=== PATIENT | female | born 1990 | race African-American/Black ===

== ENCOUNTER 2020-06-07 14:43 | Outpatient (REF) | payer SELFPAY ==
[2020-06-07 15:44] LABS: MANUAL DIFF FLAG NO
[2020-06-07 15:52] LABS: Basophils Percent Auto 0.4 % (0-2); Eosinophils Absolute Auto 0.1 X10*3/uL (0.0-0.4); Eosinophils Percent Auto 1.3 % (0-4); Hematocrit 36.5 % (37-47); Hemoglobin 11.5 g/dl (12.0-16.0); Imm Gran Abs Auto 0.01 X10*3/uL (0.00-0.03); Imm Gran Pct Auto 0.1 % (0.0-0.4); Lymphocytes Percent Auto 29.4 % (20-40); Mean Corpuscular HGB Conc 31.5 g/dl (31.0-35.0); Mean Corpuscular Volume 88.8 fL (80-98); Mean Platelet Volume 11.4 fL (9.4-12.3); Monocytes Absolute Auto 0.5 X10*3/uL (0.1-1.2); Monocytes Percent Auto 6.9 % (2-11); Neutrophils Absolute Auto 4.2 X10*3/uL (2.0-8.3); Neutrophils Percent Auto 61.9 % (45-73); Platelet Count 269 X10*3/uL (160-400); Red Blood Count 4.11 X10*6/uL (4.20-5.50); White Blood Count 6.8 X10*3/uL (4.8-10.8)
[2020-06-07 16:17] LABS: Alanine Aminotransferase 21 U/L (0-31); Albumin Level 4.4 g/dL (3.5-5.0); Alkaline Phosphatase 93 U/L (39-117); Anion Gap 13 (12-20); Aspartate Amino Transferase 20 U/L (5-31); Bilirubin Total 0.2 mg/dL (0.0-1.0); Blood Urea Nitrogen 19 mg/dL (9-16); Calcium 9.5 mg/dL (8.4-10.2); Carbon Dioxide 27 mmol/L (22-29); Chloride 104 mmol/L (96-108); Cholesterol 145 mg/dL; Estimated Glomerular Filt Rate > 60; Glucose Fasting 83 mg/dL (60-99); HDL Cholesterol 41 mg/dL; LDL Cholesterol Calculated 83 mg/dl; Potassium 4.5 mmol/L (3.3-5.1); Sodium 139 mmol/L (135-145); Total Protein 7.6 g/dL (6.5-8.0); Triglycerides 108 mg/dL
[2020-06-07 16:39] LABS: TSH reflex Free T4 0.55 uIU/mL (0.32-4.0)
== END 2020-06-07 14:44 | disposition home or self-care (01) ==
LOC: HO.LAB 14:43
PROVIDERS: PCP Nurse Practitioner Family; Visit Provider Nurse Practitioner Family
DX: Z00.00 Encounter for general adult medical examination without abnormal findings (principal); Z12.4 Encounter for screening for malignant neoplasm of cervix; H02.829 Cysts of unspecified eye, unspecified eyelid
CPT/HCPCS: 36415; 80053; 80061; 84443; 85025

== ENCOUNTER 2020-08-03 18:30 | Emergency (ER) | payer OTHER, SELFPAY ==
[2020-08-03 18:50] VITALS: BP 145/60; PULSE 77; RESP 16; TEMP 36.5; O2SAT 97; BMI 31.1
--- NOTE | 2020-08-03 19:20 | PC.NURSE ---
PT RESTING ON BED. PT ASKED TO CHANGE INTO JEFF.
[2020-08-03 19:28] VITALS: BP 106/60; PULSE 70; RESP 16; TEMP 36.9; O2SAT 96
--- NOTE | 2020-08-03 19:33 | PC.NURSE ---
PT HAS REDNESS AND SWELLING TO LEFT BREADST. PT HAS A PIERCING NOTED LEFT NIPPLE.
[2020-08-03 20:45] VITALS: BP 118/52; PULSE 69; RESP 18; TEMP 36.9; O2SAT 94
--- NOTE | 2020-08-03 20:47 | PC.NURSE ---
PT EVALED BY TATA JOHNSON.
--- NOTE | 2020-08-03 20:53 | ED_ITS ---
HPI - Skin/Abscess/Foreign Bdy General Chief complaint: Skin/Abscess/Foreign Body Stated complaint: abcess? Time Seen by Provider: 08/03/20 20:53 Source: patient Mode of arrival: ambulatory Limitations: no limitations History of Present Illness HPI narrative: Patient is a 30-year-old female no significant past medical history who has pain and redness on her lower left areola, she does have a piercing in her nipple but states that is 4 years old. She said this started a few days ago and is been getting worse. She denies fever, nipple discharge and breast-feeding. Related Data Previous Rx's Medication Instructions Recorded cholecalciferol (vitamin D3) 25 25 mcg PO DAILY #90 cap 04/05/20 mcg (1,000 unit) capsule hydroxyzine HCl 25 mg tablet 25 mg PO TID PRN 30 Days #90 tab 04/05/20 cyclobenzaprine 10 mg tablet 10 mg PO BEDTIME PRN 30 Days #30 06/07/20 tab meloxicam 15 mg tablet 15 mg PO DAILY #30 tab 07/04/20 cephalexin [Keflex] 750 mg PO Q12H #14 cap 08/03/20 doxycycline hyclate 100 mg PO BID #14 tab 08/03/20 Allergies Allergy/AdvReac Type Severity Reaction Status Date / Time No Known Allergies Allergy Verified 08/03/20 19:27 Review of Systems Review of Systems: Yes all other systems are reviewed and are negative [facility] Past Medical History Medical History Anxiety Cervical cancer screening Cyst of upper eyelid Physical exam, annual Surgical History History of cholecystectomy History of tubal ligation Family History Family History Father Diabetes Cancer Mother No problems noted. Paternal Grandmother Lupus Cancer Brother Automobile accident Social History Social History Alcohol intake: never Smoking Status: Never smoker Advance Directives: No Physical Exam Vital Signs: Vital Signs: Last Vital Signs Temp 98.5 F 08/03/20 20:45 Pulse 69 08/03/20 20:45 Resp 18 04/22/21 20:45 BP 118/52 L 08/03/20 20:45 Pulse Ox 94 08/03/20 20:45 Body Mass Index 31.1 Const: General: cooperative, healthy appearing, comfortable and no acute distress Nutritional Appearance: average body habitus Orientation/consciousness: patient oriented x3 Limitations: no limitations Chest: Breast/axilla inspection: abnormal inspection of the breast ( ) left lower inner erythema, normal nipple, abnormal areola (erythema, tenderness p alpable lump) no thickening and no ulceration and other (well healed piercing); no peau d'orange, no nipple discharge, retraction present, retraction not noted and no scar Resp: Effort & Inspection: normal respiratory effort and able to speak in complete sentences Neuro: General: patient oriented x3 Course Course Course Narrative: 30-year-old female with no significant past medical history presents with few days of pain and redness lower area left breast, physical exam reveals abscess with no fluctuance or pointing. Does not seem to be easily drainable will prescribe antibiotics. Discussed with patient it is likely an abscess but if it does not go away after 1 week of antibiotics that she should follow-up with her PCP for a ultrasound or mammogram the this is less likely as patient states she has no family history and due to her age. Discharge Plan Discharge Clinical Impression: Abscess of skin or subcutaneous tissue Qualifiers: Site of cutaneous abscess: other site Qualified Code(s): L02.818 - Cutaneous abscess of other sites Patient Disposition: Home, Self-Care Instructions: Abscess (ED) Additional Instructions: As discussed, please take both antibiotics in full. If the abscess is not resolve, please be sure to follow-up with your primary care doctor as you may need an ultrasound or mammogram. Prescriptions: New cephalexin [Keflex] 750 mg capsule 750 mg PO Q12H Qty: 14 RF: 0 doxycycline hyclate 100 mg tablet 100 mg PO BID Qty: 14 RF: 0 No Action hydroxyzine HCl 25 mg tablet 25 mg PO TID PRN (Reason: itching) 30 Days Qty: 90 RF: 3 cholecalciferol (vitamin D3) 25 mcg (1,000 unit) capsule 25 mcg PO DAILY Qty: 90 RF: 1 meloxicam 15 mg tablet 15 mg PO DAILY Qty: 30 RF: 0 cyclobenzaprine 10 mg tablet 10 mg PO BEDTIME PRN (Reason: muscle spasm) 30 Days Qty: 30 RF: 0
== END 2020-08-03 21:04 | disposition home or self-care (01) ==
PROVIDERS: Emergency Provider Internal Medicine; PCP Internal Medicine
DX: L02.818 Cutaneous abscess of other sites (principal); Z79.899 Other long term (current) drug therapy
CPT/HCPCS: 99284

== ENCOUNTER 2020-08-06 01:11 | Emergency (ER) | payer OTHER, SELFPAY ==
--- NOTE | ~2020-08-06 | US_ITS ---
EXAMINATION: US DIAGNOSTIC ULTRASOUND BREAST, LEFT CLINICAL INFORMATION: 30-year-old female presented with redness and swelling in the left breast.. COMPARISON: None. TECHNIQUE: Ultrasound of the breast is performed with real-time baez scale imaging and color Doppler. FINDINGS: Scanning over the area of clinical concern at 6 o'clock subareolar region, there is an irregular complex cystic and solid mass measuring 2.7 x 2.6 x 3.1 cm. The margins are indistinct and ill-defined. Increased vascularity is noted at the periphery of this lesion. Overlying skin thickening is noted. The finding most probably represent clinically suspected abscess however it requires close clinical and imaging follow-up to confirm complete resolution and exclude underlying other disease process. As per discussion with Dr. Cantu on 08/06/2020 at 7:46 AM, the patient had recent left nipple piercing. At 2 o'clock in the left breast several hypoechoic lesions are documented with increased vascularity with the largest one measuring 1.4 x 0.9 x 1.1. These likely represent enlarged lymph nodes. The cortical thickness of 1.4 cm lymph node is 0.8 cm. These are probably reactive lymph nodes. An incidental note is made of a simple cyst at 2 o'clock subareolar region measuring 0.6 x 0.5 x 0.8 cm. US/US breast LT limited IMPRESSION: An ill-defined complex cystic and solid structure at 6 o'clock nipple areolar region in the left breast most probably represents a clinically suspected abscess. As per discussion with Dr. Cantu drainage of this structure was performed in the ER and 5 mL of fluid was aspirated. The patient was advised to follow-up with her primary care physician in 2 days. Findings suggestive of possibly reactive lymph nodes at 2 o'clock. ASSESSMENT: BI-RADS 3: Probably Benign RECOMMENDATION: Recommend clinical correlation. Close clinical follow-up is recommended. Recommend short-term interval follow-up left breast diagnostic ultrasound in 1 to 2 months to confirm resolution of the findings and exclude underlying other disease process. Preliminary results were given by Dr. Bajwa to Dr. Simms following initial review of the studies. At the time of the discussion with Dr. Cantu on 08/06/2020 at 7:46 AM, the patient had been discharged from the emergency room with follow-up instructions.
[2020-08-06 01:22] VITALS: BP 98/71; PULSE 81; RESP 16; TEMP 36.2; O2SAT 98; BMI 32.5
--- NOTE | 2020-08-06 01:39 | PC.NURSE ---
MD at bedside for primary eval. pt chantelle in room 4 for privacy during assessment.
[2020-08-06 01:40] VITALS: BP 115/55; PULSE 85; RESP 16; TEMP 37.2; O2SAT 98
--- NOTE | 2020-08-06 02:19 | ED.SKABFB ---
HPI - Skin/Abscess/Foreign Bdy General Chief complaint: Skin/Abscess/Foreign Body Stated complaint: abscess Time Seen by Provider: 08/06/20 01:42 Source: patient Mode of arrival: ambulatory History of Present Illness HPI narrative: 30-year-old female here to states that she began developing pain after she had a nipple ring placed denies any fevers and chills and was seen here in the ER 08/03 at which time she was provided with antibiotics but states that the redness, swelling, and pain continue to worsen. Related Data Previous Rx's Medication Instructions Recorded cholecalciferol (vitamin D3) 25 25 mcg PO DAILY #90 cap 04/05/20 mcg (1,000 unit) capsule hydroxyzine HCl 25 mg tablet 25 mg PO TID PRN 30 Days #90 tab 04/05/20 cyclobenzaprine 10 mg tablet 10 mg PO BEDTIME PRN 30 Days #30 06/07/20 tab meloxicam 15 mg tablet 15 mg PO DAILY #30 tab 07/04/20 cephalexin [Keflex] 750 mg PO Q12H #14 cap 08/03/20 doxycycline hyclate 100 mg PO BID #14 tab 08/03/20 Allergies Allergy/AdvReac Type Severity Reaction Status Date / Time No Known Allergies Allergy Verified 08/03/20 19:27 Review of Systems Review of Systems: Pertinent positives and negatives as stated in HPI 10 point review of systems is otherwise negative. [facility] Past Medical History Source: nursing notes reviewed Medical History Anxiety Cervical cancer screening Cyst of upper eyelid Physical exam, annual Surgical History History of cholecystectomy History of tubal ligation Family History Family History Father Diabetes Cancer Mother No problems noted. Paternal Grandmother Lupus Cancer Brother Automobile accident Social History Social History Alcohol intake: never Smoking Status: Never smoker Use of substances other than those prescribed or required for medical reasons: No Advance Directives: No Physical Exam Vital Signs: Vital Signs: Last Vital Signs Temp 98.6 F 08/06/20 04:45 Pulse 85 08/06/20 01:40 Resp 16 08/06/20 04:45 BP 115/55 L 08/06/20 01:40 Pulse Ox 98 08/06/20 01:40 Body Mass Index 32.5 VITAL SIGNS: Reviewed. GENERAL: Well developed, well nourished, in no acute distress. HEAD: Normocephalic/atraumatic EYES: PERRLA, EOMI OROPHARYNX: no oral lesions noted, posterior pharynx clear NECK: Supple, no adenopathy LUNGS: Normal breath sounds. No adventitious sounds or accessory muscle use. SpO2<98> LEFT BREAST: Significant amount of induration from the 3 o'clock to 9 o'clock position of the inferior breast and noted swelling along the same distribution of the areola with significant tenderness on palpation CARDIOVASCULAR: Regular rate and rhythm without noted murmurs ABDOMEN: Soft, non-tender, non-distended with bowel sounds. NEUROLOGIC: Alert and oriented x 4. Course Course Course Narrative: 30-year-old female with history and clinical presentation consistent with abscess of breast likely secondary to nipple ring placement. Patient underwent aspiration of identified abscess of approximately 3 cm for purulence 5 set cc drainage. Procedures Abscess I/D Site: chest (Left breast) Side (if applicable): left Sedation/analgesia: none Local Anesthetic: other anesthetic (Let) Amount of anesthesia used (mL): 1 Technique: needle aspiration Amount of fluid expressed (mL): 5 Sent for culture/gram staining?: No Irrigation: No Packing used?: none Complications: pain Discharge Plan Discharge Clinical Impression: Abscess of breast Patient Disposition: Home, Self-Care Instructions: Abscess Incision and Drainage (DC), Warm Compress or Soak (ED) Additional Instructions: Continue antibiotics until completion Warm, moist compresses 3 to 4 times a day directly to the area. A hot shower does not substitute for this. Please follow-up with your primary care provider on Friday morning for re-evaluation and assessment. Utilize [id number] Tylenol/ibuprofen as needed for pain control use as directed on the outside packaging. Do not hesitate to return to the emergency department for any acute worsening of your symptoms. Prescriptions: No Action hydroxyzine HCl 25 mg tablet 25 mg PO TID PRN (Reason: itching) 30 Days Qty: 90 RF: 3 cholecalciferol (vitamin D3) 25 mcg (1,000 unit) capsule 25 mcg PO DAILY Qty: 90 RF: 1 meloxicam 15 mg tablet 15 mg PO DAILY Qty: 30 RF: 0 cephalexin [Keflex] 750 mg capsule 750 mg PO Q12H Qty: 14 RF: 0 doxycycline hyclate 100 mg tablet 100 mg PO BID Qty: 14 RF: 0 cyclobenzaprine 10 mg tablet 10 mg PO BEDTIME PRN (Reason: muscle spasm) 30 Days Qty: 30 RF: 0 Referrals: Yolanda Mcfarlane MD [Primary Care Provider] - 2 days (Re-evaluation of left breast abscess after needle aspiration, patient is on antibiotics)
--- NOTE | 2020-08-06 02:27 | PC.NURSE ---
pt off to ultrasound
--- NOTE | 2020-08-06 02:54 | PC.NURSE ---
pt back from ultrasound
[2020-08-06] MEDS: Acetaminophen 325 MG TABLET PO (03:02)
[2020-08-06] MEDS: Acetaminophen 325 MG TABLET 650 MG PO (03:02)
--- NOTE | 2020-08-06 03:40 | PC.NURSE ---
pt currently sleeping comfortably in bed in left lateral position, no signs of distress noted. respirations even and unlabored. call barajas in reach
[2020-08-06 04:44] VITALS: RESP 16; TEMP 37
[2020-08-06] MEDS: Lidocaine/Epineph/Tetracaine 3 ML GEL.PF.APP 1 ML TOPICAL (04:44)
[2020-08-06 04:45] VITALS: RESP 16; TEMP 37
--- NOTE | 2020-08-06 05:16 | PC.NURSE ---
MD at bedside doing ultrasound guided needle aspiration on pts left breast. pt tolerating procedure well.
== END 2020-08-06 06:42 | disposition home or self-care (01) ==
PROVIDERS: Emergency Provider Student in an Organized Health Care Education/Training Program; PCP Internal Medicine
DX: N61.1 Abscess of the breast and nipple (principal); N64.4 Mastodynia; Z79.899 Other long term (current) drug therapy
CPT/HCPCS: 10060; 76642; 99284

== ENCOUNTER 2020-10-13 08:07 | Outpatient (REF) | payer OTHER, SELFPAY ==
--- NOTE | ~2020-10-13 | US_ITS ---
EXAMINATION: US DIAGNOSTIC ULTRASOUND BREAST, LEFT CLINICAL INFORMATION: Followup of complex cystic mass retroareolar region of the left breast felt to represent abscess. Patient has been on antibiotics. COMPARISON: 08/06/2020 TECHNIQUE: Ultrasound of the breast is performed with real-time baez-scale imaging and color Doppler. FINDINGS: There has been resolution of the previously noted complex cystic mass since previous study. No region of abnormal distal sound shadowing or suspicious solid lesions identified. There is again noted be a simple cyst retroareolar 6 o'clock location. Results are discussed with the patient at time of visit. US/US breast LT limited IMPRESSION: Resolution of previously noted complex cystic mass representing abscess left breast. ASSESSMENT: BI-RADS 1: Negative. RECOMMENDATION: Screening mammography starting at 40 years old. This patient's information was entered into a reminder system with a target due date for their next mammogram.
== END 2020-10-13 08:08 | disposition home or self-care (01) ==
LOC: HO.MAMMO 08:07
PROVIDERS: Visit Provider Internal Medicine
DX: N60.02 Solitary cyst of left breast (principal)
CPT/HCPCS: 76642

== ENCOUNTER 2020-12-30 18:21 | Emergency (ER) | payer OTHER, SELFPAY ==
--- NOTE | ~2020-12-30 | XR_ITS ---
EXAMINATION: XR CHEST CLINICAL INFORMATION: Left flank pain. Chest pain. COMPARISON: None TECHNIQUE: 2 views of the chest were obtained. FINDINGS: No significant abnormality is noted involving the heart, lungs, mediastinum, bony thorax or soft tissues. XR/XR chest 2V IMPRESSION: Unremarkable examination.
[2020-12-30 19:19] VITALS: BP 112/75; PULSE 60; RESP 16; TEMP 36.3; O2SAT 98; BMI 30.6
--- NOTE | 2020-12-30 23:41 | ED.BACK ---
HPI - Back Pain/Injury General Chief Complaint: Back Pain/Injury Stated Complaint: L Side flank pain Time Seen by Provider: 12/30/20 23:41 Source: patient Mode of arrival: ambulatory Limitations: no limitations History of Present Illness HPI Narrative: left flank pain worse with breath and eating. Patient has had the pain for 5 days. Dysuria no hematuria, denies . Patient had gallstones but not kidney stones. Onset (ago): week(s) Timing: intermittent Severity: mild Quality: sharp Location: left flank Radiation: none Exacerbating factors: other (deep breathing) Associated symptoms: denies other symptoms Related Data Previous Rx's Medication Instructions Recorded cholecalciferol (vitamin D3) 25 25 mcg PO DAILY #90 cap 04/05/20 mcg (1,000 unit) capsule hydroxyzine HCl 25 mg tablet 25 mg PO TID PRN 30 Days #90 tab 04/05/20 cyclobenzaprine 10 mg tablet 10 mg PO BEDTIME PRN 30 Days #30 06/07/20 tab meloxicam 15 mg tablet 15 mg PO DAILY #30 tab 07/04/20 cephalexin 750 mg capsule (Keflex) 750 mg PO Q12H #14 cap 08/03/20 doxycycline hyclate 100 mg tablet 100 mg PO BID #14 tab 08/03/20 naproxen 500 mg tablet (Naprosyn) 500 mg PO BID #20 tab 12/31/20 Allergies Allergy/AdvReac Type Severity Reaction Status Date / Time No Known Allergies Allergy Verified 08/03/20 19:27 Review of Systems Constitutional: Constitutional: Reports no additional constitutional complaints Eyes: Eyes: Reports no additional eye complaints ENT: Denies dizziness Cardiovascular: Cardiovascular: Reports no additional cardiovascular complaints Respiratory: Respiratory: Reports as per HPI Gastrointestinal: Gastrointestinal: Reports no additional gastrointestinal complaints Genitourinary: Genitourinary: Reports no additional female genitourinary complaints Musculoskeletal: Musculoskeletal: Reports no additional musculoskeletal complaints Integumentary/Breasts: Skin/Breast: Denies rash Neurologic: Reports system reviewed and no additional complaints, except as documented, Denies dizziness and Denies Sensory deficit (Neuro) Psychiatric: Psychiatric: Denies anxiety PMFSH Past Medical History Medical History Anxiety Breast cyst Cervical cancer screening Cyst of upper eyelid Physical exam, annual Surgical History History of cholecystectomy History of tubal ligation Family History Family History Father Diabetes Cancer Mother No problems noted. Paternal Grandmother Lupus Cancer Brother Automobile accident Social History Social History Alcohol intake: never Advance Directives: No Advance Directives Information Provided: Yes Physical Exam Vital Signs: Vital Signs: Last Vital Signs Temp 97.3 F 12/30/20 19:19 Pulse 60 12/30/20 19:19 Resp 16 12/30/20 19:19 BP 112/75 12/30/20 19:19 Pulse Ox 98 12/30/20 19:19 Body Mass Index 30.6 Const: General: healthy appearing Nutritional Appearance: average body habitus Orientation/consciousness: oriented to person and patient oriented x3 Limitations: no limitations HENMT: Head: Yes normal to inspection Ears: external ears normal General nose exam: Normal external nose present Mouth: Normal oral and palatal mucosa present and oropharynx normal Throat: Yes posterior oropharynx normal Eyes: General: appearance normal, both eyes and all related structures Neck: Other: supple Neck: Yes normal visual inspection Chest: Chest palpation & inspection: normal inspection of the chest Resp: Auscultation: clear to auscultation bilaterally Cardio: Jugular venous distension: no JVD Rate: regular rate Rhythm: regular rhythm Heart sounds: S1 normal heart sound present and S2 normal heart sound present GI: Inspection: Yes normal to inspection Palpation (GI): Soft to palpation, nontender and No hepatosplenomegaly present Auscultation: normal bowel sounds : General: Yes no CVA tenderness Back/Spine/Pelvis: Back: no CVA tenderness Skin: General skin exam: no rashes or lesions noted Neuro: General: oriented to person and patient oriented x3 Cranial nerves: Yes CN's II-XII intact bilaterally Motor exam (neuro): 5/5 motor strength present throughout Sensory Exam: No Sensory deficit (Neuro) Extrem: General: Yes normal to inspection Psych: Appearance: grossly normal Course Reevaluation(s) Reevaluation #1: Urine is negative so there is no pylonephritis, no red cells and history is not consistent with kidney stone. Will treat for muscular back pain and dc home Time: 01:18 MDM - Back Pain/Injury Imaging Data Chest x-ray: Radiologist's impression: IMPRESSION: Unremarkable examination. Discharge Plan Discharge Clinical Impression: Lumbar radiculopathy Patient Disposition: Home, Self-Care Instructions: Acute Low Back Pain (ED), Back Pain (ED) Prescriptions: New naproxen [Naprosyn] 500 mg tablet 500 mg PO BID Qty: 20 RF: 0 No Action hydroxyzine HCl 25 mg tablet 25 mg PO TID PRN (Reason: itching) 30 Days Qty: 90 RF: 3 cholecalciferol (vitamin D3) 25 mcg (1,000 unit) capsule 25 mcg PO DAILY Qty: 90 RF: 1 meloxicam 15 mg tablet 15 mg PO DAILY Qty: 30 RF: 0 cephalexin [Keflex] 750 mg capsule 750 mg PO Q12H Qty: 14 RF: 0 doxycycline hyclate 100 mg tablet 100 mg PO BID Qty: 14 RF: 0 cyclobenzaprine 10 mg tablet 10 mg PO BEDTIME PRN (Reason: muscle spasm) 30 Days Qty: 30 RF: 0 Referrals: Yolanda Mcfarlane MD [Primary Care Provider] - 1 week
[2020-12-31] MEDS: Ketorolac Tromethamine 60 MG/2 ML VIAL IM (00:50)
[2020-12-31 01:38] VITALS: BP 95/49; PULSE 52; RESP 16; O2SAT 100
[2020-12-31 01:42] VITALS: BP 118/71; PULSE 73; RESP 16; O2SAT 100
== END 2020-12-31 01:43 | disposition home or self-care (01) ==
PROVIDERS: Emergency Provider Emergency Medicine; PCP Internal Medicine
DX: M54.16 Radiculopathy, lumbar region (principal); R10.9 Unspecified abdominal pain; Z79.899 Other long term (current) drug therapy
CPT/HCPCS: 71046; 96372; 99284; J1885

== ENCOUNTER 2021-03-22 09:24 | Outpatient (REF) | payer OTHER, SELFPAY ==
[2021-03-22 09:39] LABS: MANUAL DIFF FLAG NO
[2021-03-22 10:19] LABS: Basophils Percent Auto 0.3 % (0-2); Eosinophils Absolute Auto 0.1 X10*3/uL (0.0-0.4); Eosinophils Percent Auto 1.2 % (0-4); Hematocrit 36.9 % (37.0-47.0); Hemoglobin 11.5 g/dl (12.0-16.0); Imm Gran Abs Auto 0.03 X10*3/uL (0.00-0.03); Imm Gran Pct Auto 0.5 % (0.0-0.4); Lymphocytes Absolute Auto 1.7 X10*3/uL (1.2-4.9); Lymphocytes Percent Auto 25.6 % (20-40); Mean Corpuscular HGB Conc 31.2 g/dl (31.0-35.0); Mean Platelet Volume 11.4 fL (9.4-12.3); Monocytes Absolute Auto 0.4 X10*3/uL (0.1-1.2); Monocytes Percent Auto 6.7 % (2-11); Neutrophils Absolute Auto 4.3 x10*3/uL (2.0-8.3); Neutrophils Percent Auto 65.7 % (45-73); Platelet Count 224 X10*3/uL (160-400); Red Cell Distribution Width 13.5 % (11.0-16.0); White Blood Count 6.6 X10*3/uL (4.8-10.8)
[2021-03-22 11:04] LABS: Alanine Aminotransferase 20 U/L (0-31); Albumin Level 4.3 g/dL (3.5-5.0); Alkaline Phosphatase 90 U/L (39-117); Anion Gap 10 (12-20); Aspartate Amino Transferase 16 U/L (5-31); Bilirubin Total < 0.2 mg/dL (0.0-1.0); Blood Urea Nitrogen 12 mg/dL (9-16); Calcium 9.9 mg/dL (8.4-10.2); Carbon Dioxide 29 mmol/L (22-29); Chloride 104 mmol/L (96-108); Cholesterol 147 mg/dL; Estimated Glomerular Filt Rate > 60; Glucose Fasting 92 mg/dL (60-99); HDL Cholesterol 44 mg/dL; LDL Cholesterol Calculated 93 mg/dl; Potassium 4.3 mmol/L (3.3-5.1); Sodium 139 mmol/L (135-145); Total Protein 7.4 g/dL (6.5-8.0); Triglycerides 54 mg/dL
[2021-03-22 11:20] LABS: HCG Quantitative < 2 mIU/mL; Thyroid Stimulating Hormone 0.36 uIU/mL (0.32-4.0)
[2021-03-24 19:15] LABS: TS Negative Control Passed; TS Panel A 0; TS Panel B 0; TS Positive Control Passed; TSpotTB Negative (Negative)
[2021-03-27 13:01] LABS: Vitamin D 25-OH, D2 <4 ng/mL; Vitamin D 25-OH, D3 12 ng/mL; Vitamin D 25-OH, Total 12 ng/mL (30-100)
== END 2021-03-22 09:25 | disposition home or self-care (01) ==
LOC: HO.LAB 09:24
PROVIDERS: PCP Internal Medicine; Visit Provider Internal Medicine
DX: Z11.1 Encounter for screening for respiratory tuberculosis (principal); E78.5 Hyperlipidemia, unspecified; N92.6 Irregular menstruation, unspecified; E55.9 Vitamin D deficiency, unspecified; D64.9 Anemia, unspecified; L74.512 Primary focal hyperhidrosis, palms; F41.9 Anxiety disorder, unspecified
CPT/HCPCS: 36415; 80053; 80061; 82306; 84443; 84702; 85025; 86481

== ENCOUNTER 2021-05-17 08:25 | Emergency (ER) | payer OTHER, SELFPAY ==
[2021-05-17 08:36] VITALS: BP 98/45; PULSE 56; RESP 16; TEMP 36.5; O2SAT 96; BMI 26.4
[2021-05-17 09:17] VITALS: BP 106/46; PULSE 65; RESP 16; TEMP 37.2; O2SAT 97
[2021-05-17 09:17] LABS: Appearance Urine CLOUDY; Color Urine YELLOW; Glucose Urine UA NEG (NEG); Leukocyte Esterase Urine 2+ (NEG); Nitrite Urine NEG (NEG); PH >= 9.0 (5.0-8.0); UACC Culture Trigger YES; Urine Blood 3+ (NEG); Urine Ketones NEG (NEG)
[2021-05-17 09:18] LABS: Urine Protein 2+ MG/DL (NEG-TRACE)
[2021-05-17 09:19] LABS: UPreg QC Valid YES; Urine Pregnancy NEGATIVE (NEGATIVE)
--- NOTE | 2021-05-17 09:28 | ED.GENADULT ---
HPI - General Adult General Chief complaint: Vaginal Bleeding Stated complaint: Vaginal bleeding/UTI? Time Seen by Provider: 05/17/21 08:34 Source: patient Mode of arrival: ambulatory Limitations: no limitations History of Present Illness HPI narrative: 31-year-old female presents to the ED for dysuria, discharge, pelvic discomfort, and hematuria. Patient states symptoms started 3 days after having unprotected sex with her partner. She states her partner informed her that he was cheating on her with another partner outside their relationship. Patient states no flank pain, fever, or chills. Patient states suprapubic pain described as pressure. Related Data Previous Rx's Medication Instructions Recorded aluminum chloride 20 % topical 1 appl TOPICAL 2XW 30 Days #60 ml 01/08/21 solution (Drysol) cholecalciferol (vitamin D3) 25 25 mcg PO DAILY #90 cap 01/08/21 mcg (1,000 unit) capsule cyclobenzaprine 10 mg tablet 10 mg PO BEDTIME PRN 30 Days #30 01/08/21 tab hydroxyzine HCl 25 mg tablet 25 mg PO TID PRN 30 Days #90 tab 01/08/21 naproxen 500 mg tablet (Naprosyn) 500 mg PO BID #20 tab 01/08/21 ergocalciferol (vitamin D2) 1,250 1,250 mcg PO QWEEK 90 Days #13 cap 03/27/21 mcg (50,000 unit) capsule cefpodoxime 100 mg tablet 100 mg PO Q12H 7 Days #14 tab 05/17/21 doxycycline hyclate 100 mg tablet 100 mg PO BID 7 Days #14 tab 05/17/21 naproxen 500 mg tablet 500 mg PO BID PRN 10 Days #20 tab 05/17/21 Allergies Allergy/AdvReac Type Severity Reaction Status Date / Time No Known Allergies Allergy Verified 01/08/21 10:53 Review of Systems Review of Systems: Dysuria, pelvic pain, hematuria versus vaginal bleeding, unprotected sex. Yes all other systems are reviewed and are negative PMF Past Medical History Medical History (Updated 05/17/21 @ 10:00 by TATA Morrison) Anxiety Breast cyst Cervical cancer screening Cyst of upper eyelid Fibromyalgia Hyperhidrosis of hands Hypovitaminosis D Missed menses Obesity (BMI 30-39.9) Physical exam, annual Surgical History History of cholecystectomy History of tubal ligation Family History Family History (Updated 01/08/21 @ 10:45 by LINDA Santos) Father Diabetes Cancer Mother No problems noted. Paternal Grandmother Lupus Cancer Brother Automobile accident Social History Social History Housing: Apartment Alcohol intake: never Patient Tobacco Use Status: Current someday Tobacco user Second Hand Smoke Exposure: Yes Use of substances other than those prescribed or required for medical reasons: Yes Substance Use Type: Marijuana Advance Directives: No Advance Directives Information Provided: No service: No Current occupational status: employed Physical Exam Vital Signs: Vital Signs: Last Vital Signs Temp 98.6 F 05/17/21 10:16 Pulse 68 05/17/21 10:16 Resp 17 05/17/21 10:16 BP 105/50 L 05/17/21 10:30 Pulse Ox 99 05/17/21 10:16 BMI result Body Mass Index 26.4 Const: General: cooperative, healthy appearing, comfortable, no acute distress, well developed, alert and awake Orientation/consciousness: patient oriented x3 HENMT: Head: Yes normal to inspection, Yes No palpable skull fracture present, Yes normocephalic, Yes atraumatic and No abrasion Eyes: General: appearance normal, both eyes and all related structures Neck: Neck: Yes normal visual inspection, Yes full ROM, Yes no lymphadenopathy, Yes no meningeal signs, Yes trachea midline, Yes supple, No anterior neck swelling and No tender Chest: Chest palpation & inspection: normal inspection of the chest and normal palpation of entire chest wall Resp: Effort & Inspection: normal respiratory effort and able to speak in complete sentences Auscultation: clear to auscultation bilaterally Cardio: Jugular venous distension: no JVD Heart sounds: S1 normal heart sound present and S2 normal heart sound present GI: Inspection: Yes normal to inspection and No abdominal wall ecchymosis Palpation (GI): Soft to palpation, not firm, Tenderness to palpation present (GI) suprapubicly, no guarding and not rigid : Other: Negative for any vaginal bleeding General: No CVA tenderness and Yes no CVA tenderness External Female Exam: normal external appearance Speculum Exam - Vagina: normal appearance of the vagina Speculum Exam - Cervix: Abnormal cervical discharge present yellow and white and Cervical tenderness present (Positive CMT) Bimanual exam- vagina & uterus: normal bimanual exam and Cervical tenderness present (Positive CMT) Bimanual Exam- Adnexa, other: normal adnexae Back/Spine/Pelvis: Back: no CVA tenderness, No CVA tenderness and No back tenderness Skin: General skin exam: no rashes or lesions noted and elasticity normal Neuro: General: patient oriented x3, gait normal and no meningeal signs Cranial nerves: Yes CN's II-XII intact bilaterally Extrem: General: Yes normal to inspection and Yes full ROM Psych: Appearance: grossly normal, well kempt and not disheveled Course Course Course Narrative: UA ordered. Reevaluation(s) Reevaluation #1: UA shows UTI. Patient does not have any abdominal or flank tenderness. Not suspecting kidney infection or kidney stones. To patient states symptoms occurring after unprotected sex patient will be treated as STI but also given and antibiotics to treat urine. Patient educated cause of infection at times could be poor hygiene such as wrong wiping technique, not urinating after sex, or STD. Patient states she did not urinate after having sex with her boyfriend but was unprotected and he informed her that he recently cheated. negative. Not suspecting kidney stones, pyelonephritis, or any cervix, fibroid, ovarian rupture. Patient's blood pressure is soft at baseline. In comparison to prior visits patient's blood pressure has been low 100s and 90 systolic in the past. Patient states she was informed by her primary care provider her blood pressure sometimes goes low the 90 systolic. Patient denies ever feeling dizzy with low blood pressure. Once again patient states history of low blood pressure Time: 09:57 Medical Decision Making [facility] Narrative Medical decision making narrative: UTI. Possible STI exposure Lab Data Labs: Lab Results 05/17/21 05/17/21 05/17/21 Range/Units 08:58 08:58 09:56 Urine Color YELLOW Urine Appearance CLOUDY Urine pH >= 9.0 H (5.0-8.0) Ur Specific [place] 1.020 (1.005-1.025) Urine Protein 2+ H (NEG-TRACE) MG/DL Urine Glucose (UA) NEG (NEG) MG/DL Urine Ketones NEG (NEG) MG/DL Urine Blood 3+ H (NEG) Urine Nitrite NEG (NEG) Ur Leukocyte Esterase 2+ H (NEG) Urine RBC 50-75 H (0) /HPF Urine WBC 76-150 H (0-4) /HPF Ur Squamous Epith Cells 2+ /LPF Amorphous Sediment 2+ /LPF Urine Bacteria TRACE /LPF Urine Mucus 2+ /LPF Urine Test NEGATIVE (NEGATIVE) Chlam trachomat DNA PCR NOT DETECTED (Not Detect.) N.gonorrhoeae DNA (PCR) NOT DETECTED (Not Detect.) Discharge Plan Discharge Clinical Impression: UTI (urinary tract infection) Patient Disposition: Home, Self-Care Instructions: Urinary Tract Infection in Women (DC) Additional Instructions: Urine came back positive for urinary tract infection. Will be discharged with antibiotics. Return to the ED immediately for abdominal pain, nausea, vomiting, flank pain, fever, chills, hematuria, or any other concerning symptoms. Please follow-up with primary care provider. Prescriptions: New doxycycline hyclate 100 mg tablet 100 mg PO BID 7 Days Qty: 14 0RF cefpodoxime 100 mg tablet 100 mg PO Q12H 7 Days Qty: 14 0RF Rx Instructions: must administer with a meal/food naproxen 500 mg tablet 500 mg PO BID PRN (Reason: pain) 10 Days Qty: 20 0RF No Action ergocalciferol (vitamin D2) 1,250 mcg (50,000 unit) capsule 1,250 mcg PO QWEEK 90 Days Qty: 13 1RF cholecalciferol (vitamin D3) 25 mcg (1,000 unit) capsule 25 mcg PO DAILY Qty: 90 1RF cyclobenzaprine 10 mg tablet 10 mg PO BEDTIME PRN (Reason: muscle spasm) 30 Days Qty: 30 0RF hydroxyzine HCl 25 mg tablet 25 mg PO TID PRN (Reason: itching) 30 Days Qty: 90 3RF naproxen [Naprosyn] 500 mg tablet 500 mg PO BID Qty: 20 0RF aluminum chloride [Drysol] 20 % solution 1 appl topical 2XW 30 Days Qty: 60 6RF Interventions: ED Discharge Assessment Last Done: 05/17/21 10:33 Discharge Date/Time: 05/17/21 10:33 Print Language: Omani
[2021-05-17 09:30] LABS: Amorphous Sediment Urine 2+ /LPF; Mucus Urine 2+ /LPF; RBC Urine 50-75 /HPF (0); Squamous Epithelial Cell Urine 2+ /LPF
[2021-05-17 09:31] LABS: Bacteria Urine TRACE /LPF
[2021-05-17 10:16] VITALS: BP 100/46; PULSE 68; RESP 17; TEMP 37; O2SAT 99
[2021-05-17] MEDS: Ibuprofen 800 MG TABLET PO (10:25)
[2021-05-17] MEDS: cefTRIAXone sodium 500 MG, Lidocaine HCl 1 % MPF 1 ML IM (10:25)
[2021-05-17 10:30] VITALS: BP 105/50
[2021-05-17 12:38] LABS: CT PCR NOT DETECTED (Not Detect.); NG PCR NOT DETECTED (Not Detect.)
[2021-05-18 08:46] LABS: BV Int Neg Control Negative (Negative); BV Int Pos Control Positive (Positive)
== END 2021-05-17 10:33 | disposition home or self-care (01) ==
PROVIDERS: Physician Assistant; Emergency Provider Emergency Medicine; PCP Internal Medicine
DX: N39.0 Urinary tract infection, site not specified (principal); N76.0 Acute vaginitis
CPT/HCPCS: 81001; 81025; 87086; 87088; 87186; 87480; 87491; 87510; 87591; 87660; 96372; 99284; J0696

== ENCOUNTER 2021-07-11 02:27 | Emergency (ER) | payer OTHER, SELFPAY ==
[2021-07-11 02:28] VITALS: BP 124/59; PULSE 67; RESP 18; TEMP 36.8; O2SAT 99; BMI 30.8
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
== END 2021-07-11 03:06 | disposition home or self-care (01) ==
LOC: HO.ED 03:02
PROVIDERS: Emergency Provider Emergency Medicine; PCP Internal Medicine
DX: S39.92XA Unspecified injury of lower back, initial encounter (principal); Y04.2XXA Assault by strike against or bumped into by another person, initial encounter; Y93.F9 Activity, other caregiving; Y92.239 Unspecified place in hospital as the place of occurrence of the external cause; Y99.0 Civilian activity done for income or pay
CPT/HCPCS: 99282; 99283

== ENCOUNTER 2021-11-14 13:49 | Emergency (ER) | payer OTHER, SELFPAY ==
--- NOTE | ~2021-11-14 | XR_ITS ---
EXAMINATION: XR CHEST CLINICAL INFORMATION: Chest pain COMPARISON: December 31, 2020 TECHNIQUE: Frontal view of the chest was obtained. FINDINGS: No significant abnormality is noted involving the heart, lungs, mediastinum, bony thorax or soft tissues. XR/XR chest 1V IMPRESSION: No acute disease.
--- NOTE | 2021-11-14 14:00 | ECG_ITS ---
Test Reason : chest tightness Blood Pressure : / mmHG Vent. Rate : 044 BPM Atrial Rate : 044 BPM P-R Int : 150 ms QRS Dur : 096 ms QT Int : 478 ms P-R-T Axes : 072 035 036 degrees QTc Int : 408 ms Marked sinus bradycardia T wave abnormality, consider anterior ischemia Abnormal ECG No previous ECGs available Referred By: Generic ED Physician Electronically Signed By:DELIA LOCK MD
[2021-11-14 14:30] LABS: MANUAL DIFF FLAG NO
[2021-11-14 14:34] LABS: Basophils Percent Auto 0.5 % (0-2); Eosinophils Absolute Auto 0.1 X10*3/uL (0.0-0.4); Eosinophils Percent Auto 0.9 % (0-4); Hematocrit 34.9 % (37.0-47.0); Hemoglobin 11.1 g/dl (12.0-16.0); Imm Gran Abs Auto 0.01 X10*3/uL (0.00-0.03); Imm Gran Pct Auto 0.2 % (0.0-0.4); Lymphocytes Absolute Auto 1.9 X10*3/uL (1.2-4.9); Lymphocytes Percent Auto 32.7 % (20-40); Mean Corpuscular HGB Conc 31.8 g/dl (31.0-35.0); Mean Corpuscular Volume 88.1 fL (80.0-98.0); Mean Platelet Volume 10.6 fL (9.4-12.3); Monocytes Absolute Auto 0.4 X10*3/uL (0.1-1.2); Monocytes Percent Auto 7.5 % (2-11); Neutrophils Absolute Auto 3.4 x10*3/uL (2.0-8.3); Neutrophils Percent Auto 58.2 % (45-73); Platelet Count 223 X10*3/uL (160-400); Red Blood Count 3.96 X10*6/uL (4.20-5.50); Red Cell Distribution Width 12.8 % (11.0-16.0); White Blood Count 5.8 X10*3/uL (4.8-10.8)
[2021-11-14 14:45] LABS: Anion Gap 11 (12-20); Blood Urea Nitrogen 11 mg/dL (9-16); Calcium 9.4 mg/dL (8.4-10.2); Carbon Dioxide 28 mmol/L (22-29); Chloride 108 mmol/L (96-108); Estimated Glomerular Filt Rate > 60; Glucose Random 92 mg/dL (60-115); Potassium 4.1 mmol/L (3.3-5.1); Sodium 143 mmol/L (135-145)
[2021-11-14 14:50] LABS: Troponin-I High Sensitivity < 3.5 ng/L (<3.5-17.0)
[2021-11-14 15:10] VITALS: BP 104/45; PULSE 54; RESP 18; TEMP 36.6; O2SAT 98; BMI 30.2
[2021-11-14 16:10] LABS: COVID-19 Test Negative (Negative); IDNOW Serial# 16C4AD1C
--- NOTE | 2021-11-14 16:56 | ED_ITS ---
HPI - General Adult General Chief complaint: General Medical Stated complaint: chest pain, feeling weak Time Seen by Provider: 11/14/21 15:48 Source: patient Mode of arrival: ambulatory Limitations: no limitations History of Present Illness HPI narrative: 31-year-old female presents to ED for chest pain described as burning, headache, subjective fevers, and body aches for 1 week. Patient denies any shortness of breath, pleurisy, leg swelling, calf pain, coughing up blood, recent long travel, recent surgery, or control pills. Patient denies anyone at home being sick. Related Data Previous Rx's Medication Instructions Recorded cholecalciferol (vitamin D3) 50 50 mcg PO DAILY 90 days #90 caps 06/11/21 mcg (2,000 unit) capsule cyclobenzaprine 10 mg tablet 10 mg PO BEDTIME PRN muscle spasm 07/31/21 30 days #30 tabs naproxen 500 mg tablet 500 mg PO BID PRN pain 10 days #20 07/31/21 tabs omeprazole 20 mg capsule,delayed 20 mg PO DAILY 90 days #90 caps 07/31/21 release amitriptyline 25 mg tablet 25 mg PO BEDTIME 90 days #90 tabs 08/09/21 hydroxyzine HCl 25 mg tablet 25 mg PO TID PRN itching 30 days 08/09/21 #90 tabs famotidine 20 mg tablet (Pepcid) 20 mg PO BID 10 days #20 tabs 11/14/21 Allergies Allergy/AdvReac Type Severity Reaction Status Date / Time No Known Allergies Allergy Verified 08/21/21 09:07 Review of Systems Review of Systems: Chest pain described as burning, fevers, headache, body aches, joint pain Yes all other systems are reviewed and are negative PMFSH Past Medical History Medical History Anxiety Breast cyst Cervical cancer screening Cyst of upper eyelid Easy bruising Fibromyalgia GERD (gastroesophageal reflux disease) Hyperhidrosis of hands Hypovitaminosis D Missed menses Moderate recurrent major depression Obesity (BMI 30-39.9) Physical exam Physical exam, annual Polyarthralgia Surgical History (Updated 08/21/21 @ 10:00 by David Lunsford MD) History of cholecystectomy History of tubal ligation Family History Family History Father Diabetes Cancer Mother No problems noted. Paternal Grandmother Lupus Cancer Brother Automobile accident Social History Social History (Updated 08/21/21 @ 09:07 by Lisa Tejada CMA) Household Members: Children Housing: Apartment Are you a primary primary care physician to a significant other at home: No Do you presently have visiting nurse or other home services: No Alcohol intake: never Patient Tobacco Use Status: Former Tobacco user Tobacco use type: Cigarette e-Cigarette/Vaping Use: Never Used Second Hand Smoke Exposure: Yes Substance Use Type: Marijuana Advance Directives: No Advance Directives Information Provided: No service: No Current occupational status: employed Current occupational exposures/hazards: No Cognitive needs: No Hearing needs: No Vision needs: No Physical Exam ED Vital Signs: Vital Signs - 24 hr 11/14/21 15:10 Temperature 97.9 F Pulse Rate 54 Respiratory Rate 18 Blood Pressure 104/45 L Pulse Oximetry 98 Oxygen Delivery Method Room Air BMI result Body Mass Index 30.2 Const General: cooperative, healthy appearing, comfortable, no acute distress, well developed, alert, awake and Physically active Orientation/consciousness: patient oriented x3 HENMT Head: Yes normal to inspection, Yes No palpable skull fracture present, Yes normocephalic, Yes atraumatic and No abrasion Eyes General: appearance normal, both eyes and all related structures Neck Neck: Yes normal visual inspection, Yes full ROM, Yes no lymphadenopathy, Yes no meningeal signs, Yes trachea midline, Yes supple, No anterior neck swelling and No tender Chest Chest palpation & inspection: normal inspection of the chest and normal palpation of entire chest wall Breast/axilla inspection: normal inspection of the breasts and normal inspection of the axillae Resp Effort & Inspection: normal respiratory effort and able to speak in complete sentences Auscultation: clear to auscultation bilaterally Cardio Jugular venous distension: no JVD Heart sounds: S1 normal heart sound present and S2 normal heart sound present GI Inspection: Yes normal to inspection Palpation (GI): Soft to palpation, not firm, nontender, no guarding and not rigid General: No CVA tenderness and Yes no CVA tenderness Back/Spine/Pelvis Back: no CVA tenderness, No CVA tenderness and No back tenderness Skin General skin exam: no rashes or lesions noted and elasticity normal Neuro General: patient oriented x3, gait normal, no meningeal signs and CN's II-XI intact bilaterally Cranial nerves: Yes CN's II-XII intact bilaterally Extrem Other: Lower extremities negative for any swelling, pitting edema, calf tenderness for General: Yes normal to inspection and Yes full ROM Psych Appearance: grossly normal, well kempt and not disheveled Course Course Course Narrative: EKG, labs, COVID, and chest x-ray ordered Reevaluation(s) Reevaluation #1: EKG negative STEMI. Chest x-ray negative. COVID swab negative. Labs at baseline. Patient informing her grandmother had lupus patient informed follow- up with primary care provider and may need to get worked up for lupus due to fe moises, body aches and joint pain. PERC score 0. Due to history of GERD with chest burning complaint will dischage with pepcid. Heart Score 0. Time: 17:07 Medical Decision Making MDM Narrative Medical decision making narrative: Atypical Chest pain. Lab Data Result diagrams: 11/14/21 14:22 11/14/21 14:22 Labs: Lab Results 11/14/21 11/14/21 11/14/21 Range/Units 14:22 14:22 14:23 WBC 5.8 (4.8-10.8) X10*3/uL RBC 3.96 L (4.20-5.50) X10*6/uL Hgb 11.1 L (12.0-16.0) g/dl Hct 34.9 L (37.0-47.0) % MCV 88.1 (80.0-98.0) fL MCH 28.0 (27.0-33.0) pg MCHC 31.8 (31.0-35.0) g/dl RDW 12.8 (11.0-16.0) % Plt Count 223 (160-400) X10*3/uL MPV 10.6 (9.4-12.3) fL Immature Gran % (Auto) 0.2 (0.0-0.4) % Neut % (Auto) 58.2 (45-73) % Lymph % (Auto) 32.7 (20-40) % [place] % (Auto) 7.5 (2-11) % Eos % (Auto) 0.9 (0-4) % Baso % (Auto) 0.5 (0-2) % Lymph # (Auto) 1.9 (1.2-4.9) X10*3/uL [place] # (Auto) 0.4 (0.1-1.2) X10*3/uL Eos # (Auto) 0.1 (0.0-0.4) X10*3/uL Baso # (Auto) 0.0 (0.0-0.2) X10*3/uL Abs Immat Gran (auto) 0.01 (0.00-0.03) X10*3/uL Absolute Neuts (auto) 3.4 (2.0-8.3) x10*3/uL Absolute Nucleated RBC 0.000 (0.0-0.012) X10*3/uL Nucleated RBC % (auto) 0.0 (0.0-0.2) /100WBC Sodium 143 (135-145) mmol/L Potassium 4.1 (3.3-5.1) mmol/L Chloride 108 (96-108) mmol/L Carbon Dioxide 28 (22-29) mmol/L Anion Gap 11 L (12-20) BUN 11 (9-16) mg/dL Creatinine 0.80 (0.5-1.4) mg/dL Estim Creat Clear Calc TNP Estimated GFR > 60 Random Glucose 92 (60-115) mg/dL Calcium 9.4 D (8.4-10.2) mg/dL Troponin I High Sens < 3.5 (<3.5-17.0) ng/L COVID-19 ([facility]) (Negative) COVID-19 Clin Com 11/14/21 Range/Units 15:16 WBC (4.8-10.8) X10*3/uL RBC (4.20-5.50) X10*6/uL Hgb (12.0-16.0) g/dl Hct (37.0-47.0) % MCV (80.0-98.0) fL MCH (27.0-33.0) pg MCHC (31.0-35.0) g/dl RDW (11.0-16.0) % Plt Count (160-400) X10*3/uL MPV (9.4-12.3) fL Immature Gran % (Auto) (0.0-0.4) % Neut % (Auto) (45-73) % Lymph % (Auto) (20-40) % [place] % (Auto) (2-11) % Eos % (Auto) (0-4) % Baso % (Auto) (0-2) % Lymph # (Auto) (1.2-4.9) X10*3/uL [place] # (Auto) (0.1-1.2) X10*3/uL Eos # (Auto) (0.0-0.4) X10*3/uL Baso # (Auto) (0.0-0.2) X10*3/uL Abs Immat Gran (auto) (0.00-0.03) X10*3/uL Absolute Neuts (auto) (2.0-8.3) x10*3/uL Absolute Nucleated RBC (0.0-0.012) X10*3/uL Nucleated RBC % (auto) (0.0-0.2) /100WBC Sodium (135-145) mmol/L Potassium (3.3-5.1) mmol/L Chloride (96-108) mmol/L Carbon Dioxide (22-29) mmol/L Anion Gap (12-20) BUN (9-16) mg/dL Creatinine (0.5-1.4) mg/dL Estim Creat Clear Calc Estimated GFR Random Glucose (60-115) mg/dL Calcium (8.4-10.2) mg/dL Troponin I High Sens (<3.5-17.0) ng/L COVID-19 ([facility]) Negative (Negative) COVID-19 Clin Com See Note ECG Data Interpretation: Marked sinus bradycardia. Ventricular rate 44. [place] interval 150. QRS 96. QTC 408. Negative STEMI Discharge Plan Discharge Clinical Impression: Chest pain, atypical, GERD (gastroesophageal reflux disease), Acute viral syndrome Patient Disposition: Home, Self-Care Additional Instructions: . EKG and blood work came back negative for heart attack. The chest x-ray came back normal. COVID swab negative. Your labs came back at baseline. Return to the ED immediately for chest pain inspiration, shortness of breath, worsening chest pain, coughing up blood, leg swelling, calf pain, rash, watery eyes, neck stiffness, photophobia, severe headache, or any other concerning symptoms. Please follow-up with primary care provider. Prescriptions: New famotidine [Pepcid] 20 mg tablet 20 mg PO BID 10 Days Qty: 20 0RF No Action cyclobenzaprine 10 mg tablet 10 mg PO BEDTIME PRN (Reason: muscle spasm) 30 Days Qty: 30 0RF naproxen 500 mg tablet 500 mg PO BID PRN (Reason: pain) 10 Days Qty: 20 0RF omeprazole 20 mg capsule,delayed release(DR/EC) 20 mg PO DAILY 90 Days Qty: 90 1RF cholecalciferol (vitamin D3) 50 mcg (2,000 unit) capsule 50 mcg PO DAILY 90 Days Qty: 90 1RF amitriptyline 25 mg tablet 25 mg PO BEDTIME 90 Days Qty: 90 1RF hydroxyzine HCl 25 mg tablet 25 mg PO TID PRN (Reason: itching) 30 Days Qty: 90 3RF Referrals: Yolanda Mcfarlane MD [Primary Care Provider] - (Atypical chest pain. GERD. Viral Syndrome.) Stand Alone Forms: Work/School Release Interventions: ED Discharge Assessment Last Done: 11/14/21 17:52 Discharge Date/Time: 11/14/21 17:52 Print Language: Setswana
== END 2021-11-14 17:52 | disposition home or self-care (01) ==
PROVIDERS: Emergency Provider Emergency Medicine; PCP Internal Medicine
DX: R07.89 Other chest pain (principal); B34.9 Viral infection, unspecified; R51.9 Headache, unspecified; R50.9 Fever, unspecified; M79.10 Myalgia, unspecified site; Z20.822 Contact with and (suspected) exposure to COVID-19; Z79.899 Other long term (current) drug therapy; Z87.891 Personal history of nicotine dependence
CPT/HCPCS: 36415; 71045; 80048; 84484; 85025; 87635; 93005; 99284

== ENCOUNTER 2022-02-13 09:28 | Outpatient (REF) | payer OTHER, SELFPAY ==
--- NOTE | ~2022-02-13 | MR_ITS ---
EXAMINATION: MRI OF THE BRAIN WITHOUT CONTRAST CLINICAL INFORMATION: Headaches and confusion. COMPARISON: MRI scan of the brain 05/20/2019. TECHNIQUE: MRI of the brain was obtained using routine sequences without contrast. FINDINGS: No diffusion abnormalities are identified to suggest an acute or subacute infarct. No mass effect or midline shift is seen. The ventricles and sulci are normal in size. Brain parenchymal signal is unremarkable. No extra-axial fluid collections are seen. The brainstem and cerebellum are normal. No pathologic magnetic susceptibility artifact is identified on the gradient refocused acquisition. The craniovertebral junction, marrow signal, and midline structures are normal. The major intracranial flow-voids at the level of the [place] are preserved. The dural venous sinus flow-voids are maintained. The mastoid air cells are well-aerated. There is mucoperiosteal thickening in the bilateral sphenoid and ethmoid sinuses. MR/MR head/brain wo con IMPRESSION: 1. There are no acute bleeds or infarcts. No masses are demonstrated. 2. There is mucoperiosteal thickening in the bilateral ethmoid and sphenoid sinuses.
== END 2022-02-13 09:29 | disposition home or self-care (01) ==
LOC: HO.MRI 09:28
PROVIDERS: Visit Provider Internal Medicine
DX: R20.0 Anesthesia of skin (principal)
CPT/HCPCS: 70551

== ENCOUNTER 2022-04-20 14:05 | Emergency (ER) | payer OTHER, SELFPAY ==
--- NOTE | 2022-04-20 14:08 | ED_ITS ---
HPI - General Adult General Chief complaint: Nausea/Vomiting/Diarrhea Stated complaint: vomiting Source: patient Mode of arrival: ambulatory Limitations: no limitations History of Present Illness HPI narrative: Patient is a 32 year old assigned female at with a history of fibromyalgia presenting to the emergency department today with nausea and vomiting. Patient states that she drank a lot of alcohol last night and has been having nausea, vomiting, and abdominal pain all morning. Patient denies any dizziness, lightheadedness, fever, chills, blurry vision, double vision, loss of vision, chest pain, difficulty breathing, shortness of breath, back pain, night sweats, pain with urination, increased urinary frequency, increased urinary urgency, blood in her urine or stool, syncope or a near syncopal episode, recent trauma or falls, bowel incontinence, bladder incontinence, bowel retention, bladder retention, or any other complaints at this time. Onset (ago): hour(s) Location: abdomen Radiation: non-radiation Severity: mild Severity scale (1-10): 3 Pain Consistency: constant Relieving factors: none Exacerbating factors: none Associated symptoms: nausea/vomiting Treatments prior to arrival: none Related Data Previous Rx's Medication Instructions Recorded cholecalciferol (vitamin D3) 50 50 mcg PO DAILY 90 days #90 caps 06/11/21 mcg (2,000 unit) capsule gabapentin 100 mg capsule 100 mg PO BEDTIME 90 days #90 caps 03/04/22 sertraline 50 mg tablet 50 mg PO DAILY 90 days #90 tabs 03/04/22 Allergies Allergy/AdvReac Type Severity Reaction Status Date / Time No Known Allergies Allergy Verified 11/19/21 12:49 Review of Systems Constitutional: Constitutional: Reports no additional constitutional complaints, Denies chills, Denies fever(s) and Denies night sweats Eyes: Eyes: Reports no additional eye complaints, Denies blurry vision, Denies change in vision, Denies diplopia, Denies eye discharge, Denies loss of vision and Denies eye pain ENT: Denies dizziness Cardiovascular: Cardiovascular: Reports no additional cardiovascular complaints, Denies chest pain, Denies lightheadedness, Denies Loss of Consciousness and Denies dyspnea Respiratory: Respiratory: Reports no additional respiratory complaints and Denies dyspnea Gastrointestinal: Gastrointestinal: Reports no additional gastrointestinal complaints, Reports abdominal pain, Denies melena, Denies hematochezia, Denies change in bowel habits, Denies change in stool character, Reports nausea and Reports vomiting Genitourinary: Genitourinary: Denies hematuria, Denies urinary frequency, Titus es dysuria, Denies urinary incontinence, Denies urinary hesitancy and Denies urinary urgency Musculoskeletal: Musculoskeletal: Reports no additional musculoskeletal complaints, Denies numbness and Denies tingling Neurologic: Denies dizziness, Denies loss of vision, Denies numbness and Denies tingling Psychiatric: Psychiatric: Reports no additional psychiatric complaints Endocrine: Endocrine: Reports no additional endocrine complaints Hematologic/Lymphatic: Hematologic/Lymphatic: Reports no additional hematologic/lymphatic complaints Allergic/Immunologic: Allergic/Immunologic: Reports no additional allergic/immunologic complaints [facility] Past Medical History Attestation statement: The following information was validated with the patient. Source: old records reviewed and nursing notes reviewed Medical History Anxiety Breast cyst Cervical cancer screening Cyst of upper eyelid Easy bruising Fibromyalgia GERD (gastroesophageal reflux disease) Hyperhidrosis of hands Hypovitaminosis D Missed menses Moderate recurrent major depression Obesity (BMI 30-39.9) Physical exam Physical exam, annual Polyarthralgia Surgical History History of cholecystectomy History of tubal ligation Family History Family History Father Diabetes Cancer Mother No problems noted. Paternal Grandmother Lupus Cancer Brother Automobile accident Social History Social History Household Members: Children Housing: Apartment Are you a primary team primary care physician to a significant other at home: No Do you presently have visiting nurse or other home services: No Alcohol intake: never Patient Tobacco Use Status: Former Tobacco user Tobacco use type: Cigarette e-Cigarette/Vaping Use: Never Used Second Hand Smoke Exposure: Yes Substance Use Type: Marijuana Advance Directives: No Advance Directives Information Provided: No service: No Current occupational status: employed Current occupational exposures/hazards: No Cognitive needs: No Hearing needs: No Vision needs: No Physical Exam ED Vital Signs: Vital Signs - 24 hr 04/20/22 14:09 Temperature 96.8 F Pulse Rate 50 Respiratory Rate 18 Blood Pressure 107/61 Pulse Oximetry 99 Oxygen Delivery Method Room Air BMI result Body Mass Index 27.4 Const General: cooperative, no acute distress, alert and awake Nutritional Appearance: well nourished Orientation/consciousness: patient oriented x3 Limitations: no limitations HENMT Head: Yes normal to inspection and Yes atraumatic Ears: hearing grossly normal bilaterally and external ears normal General nose exam: Normal external nose present, no nasal discharge noted and no epistaxis Face and sinus: Yes normal facial exam, No abrasion and No laceration Mouth: Normal oral and palatal mucosa present, no drooling and no muffled voice Eyes General: appearance normal, both eyes and all related structures Periorbital: periorbital findings normal Eyelids: Yes eyelids normal Conjunctivae: conjunctivae normal Pupils: Equal, round and reactive pupils present EOM: EOMs intact bilaterally Neck Neck: Yes normal visual inspection, Yes full ROM and Yes no lymphadenopathy Chest Chest palpation & inspection: normal inspection of the chest Resp Effort & Inspection: normal respiratory effort and able to speak in complete sentences Auscultation: clear to auscultation bilaterally Cardio Rate: regular rate Rhythm: regular rhythm GI Inspection: Yes normal to inspection Palpation (GI): Soft to palpation, not firm, nontender and no guarding Neuro General: patient oriented x3 and moves all extremities Cranial nerves: Yes Equal, round and reactive pupils present Cognition (Neuro): normal cognition Motor exam (neuro): 5/5 motor strength present throughout Sensory Exam: Normal double simultaneous stimulation for sensation Coordination: [id number] test normal Extrem General: Yes normal to inspection, Yes full ROM and Yes capillary refill normal Psych Appearance: grossly normal Mental Status: mental status grossly normal Affect: normal affect Attitude: cooperative Thought process: Normal thought process present Thought content: Normal thought content present Insight: Good insight present (Psych) Course Course Course Narrative: RME performed by Leidy Garcia PA-C. Patient is a 32 year old female presenting to the emergency department with nausea and vomiting. Patient states that she drank a lot of [place] last night. Labs ordered. Patient placed in waiting room pending results and room availability. Medical Decision Making Medical Decision Making MDM Narrative: Patient is a 32 year old assigned female at with a history of fibromyalgia presenting to the emergency department today with abdominal pain, nausea, and vomiting. Patient's physical exam was unremarkable. Patient's blood work was un remarkable. Patient eloped before discussing her results. Differential Diagnosis Differential Diagnoses: The differential diagnosis associated with the presentation includes abdominal pain, nausea, vomiting Lab Data MDM Lab Attestation statement: I reviewed the patient's lab results. 04/20/22 15:27 04/20/22 15:27 Labs: Lab Results 04/20/22 04/20/22 04/20/22 Range/Units 15:27 15:27 15:27 WBC 10.7 (4.8-10.8) X10*3/uL RBC 4.27 (4.20-5.50) X10*6/uL Hgb 11.9 L (12.0-16.0) g/dl Hct 36.7 L (37.0-47.0) % MCV 85.9 (80.0-98.0) fL MCH 27.9 (27.0-33.0) pg MCHC 32.4 (31.0-35.0) g/dl RDW 13.1 (11.0-16.0) % Plt Count 272 (160-400) X10*3/uL MPV 10.4 (9.4-12.3) fL Immature Gran % (Auto) 0.3 (0.0-0.4) % Neut % (Auto) 84.4 H (45-73) % Lymph % (Auto) 12.0 L (20-40) % [place] % (Auto) 3.2 (2-11) % Eos % (Auto) 0.0 (0-4) % Baso % (Auto) 0.1 (0-2) % Lymph # (Auto) 1.3 (1.2-4.9) X10*3/uL [place] # (Auto) 0.3 (0.1-1.2) X10*3/uL Eos # (Auto) 0.0 (0.0-0.4) X10*3/uL Baso # (Auto) 0.0 (0.0-0.2) X10*3/uL Abs Immat Gran (auto) 0.03 (0.00-0.03) X10*3/uL Absolute Neuts (auto) 9.0 H (2.0-8.3) x10*3/uL Absolute Nucleated RBC 0.000 (0.0-0.012) X10*3/uL Nucleated RBC % (auto) 0.0 (0.0-0.2) /100WBC Sodium 141 (135-145) mmol/L Potassium 4.7 (3.3-5.1) mmol/L Chloride 107 (96-108) mmol/L Carbon Dioxide 24 (22-29) mmol/L Anion Gap 15 (12-20) BUN 14 (9-16) mg/dL Creatinine 0.80 (0.5-1.4) mg/dL Estim Creat Clear Calc 99.5 Estimated GFR > 60 Random Glucose 120 H (60-115) mg/dL Calcium 10.2 D (8.4-10.2) mg/dL Magnesium 1.9 (1.6-2.6) mg/dL Total Bilirubin 0.6 (0.0-1.0) mg/dL AST 38 H (5-31) U/L ALT 51 H (0-31) U/L Alkaline Phosphatase 86 (39-117) U/L Total Protein 8.2 H (6.5-8.0) g/dL Albumin 4.8 (3.5-5.0) g/dL Lipase 11 (8-78) U/L Discharge Plan Discharge Clinical Impression: Abdominal pain, Nausea & vomiting Patient Disposition: Elopement Prescriptions: No Action sertraline 50 mg tablet 50 mg PO DAILY 90 Days Qty: 90 1RF gabapentin 100 mg capsule 100 mg PO BEDTIME 90 Days Qty: 90 0RF cholecalciferol (vitamin D3) 50 mcg (2,000 unit) capsule 50 mcg PO DAILY 90 Days Qty: 90 1RF Discharge Date/Time: 04/20/22 16:23
[2022-04-20 14:09] VITALS: BP 107/61; PULSE 50; RESP 18; TEMP 36; O2SAT 99; BMI 27.4
[2022-04-20 15:33] LABS: MANUAL DIFF FLAG NO
[2022-04-20 15:37] LABS: Basophils Percent Auto 0.1 % (0-2); Hematocrit 36.7 % (37.0-47.0); Hemoglobin 11.9 g/dl (12.0-16.0); Imm Gran Abs Auto 0.03 X10*3/uL (0.00-0.03); Imm Gran Pct Auto 0.3 % (0.0-0.4); Lymphocytes Absolute Auto 1.3 X10*3/uL (1.2-4.9); Mean Corpuscular HGB Conc 32.4 g/dl (31.0-35.0); Mean Corpuscular Hemoglobin 27.9 pg (27.0-33.0); Mean Corpuscular Volume 85.9 fL (80.0-98.0); Mean Platelet Volume 10.4 fL (9.4-12.3); Monocytes Absolute Auto 0.3 X10*3/uL (0.1-1.2); Monocytes Percent Auto 3.2 % (2-11); Neutrophils Percent Auto 84.4 % (45-73); Platelet Count 272 X10*3/uL (160-400); Red Blood Count 4.27 X10*6/uL (4.20-5.50); Red Cell Distribution Width 13.1 % (11.0-16.0); White Blood Count 10.7 X10*3/uL (4.8-10.8)
--- NOTE | 2022-04-20 15:41 | PC.NURSE ---
called to triage for medication administration.
[2022-04-20 15:49] LABS: Lipase 11 U/L (8-78)
[2022-04-20 15:51] LABS: Alanine Aminotransferase 51 U/L (0-31); Albumin Level 4.8 g/dL (3.5-5.0); Alkaline Phosphatase 86 U/L (39-117); Anion Gap 15 (12-20); Aspartate Amino Transferase 38 U/L (5-31); Bilirubin Total 0.6 mg/dL (0.0-1.0); Blood Urea Nitrogen 14 mg/dL (9-16); Calcium 10.2 mg/dL (8.4-10.2); Carbon Dioxide 24 mmol/L (22-29); Chloride 107 mmol/L (96-108); Creatinine Clr Calc Pharmacy 99.5; Estimated Glomerular Filt Rate > 60; Glucose Random 120 mg/dL (60-115); Magnesium 1.9 mg/dL (1.6-2.6); Potassium 4.7 mmol/L (3.3-5.1); Sodium 141 mmol/L (135-145); Total Protein 8.2 g/dL (6.5-8.0)
== END 2022-04-20 16:23 | disposition left against medical advice (07) ==
PROVIDERS: Physician Assistant Medical; Emergency Provider Emergency Medicine; PCP Internal Medicine
DX: R10.9 Unspecified abdominal pain (principal); R11.2 Nausea with vomiting, unspecified
CPT/HCPCS: 36415; 80053; 83690; 83735; 85025; 99281; 99283

== ENCOUNTER 2022-06-26 07:56 | Outpatient (REF) | payer OTHER, SELFPAY ==
[2022-06-26 08:13] LABS: MANUAL DIFF FLAG NO
[2022-06-26 08:25] LABS: Basophils Percent Auto 0.5 % (0-2); Eosinophils Absolute Auto 0.2 X10*3/uL (0.0-0.4); Eosinophils Percent Auto 2.4 % (0-4); Hematocrit 37.2 % (37.0-47.0); Hemoglobin 11.7 g/dl (12.0-16.0); Imm Gran Abs Auto 0.02 X10*3/uL (0.00-0.03); Imm Gran Pct Auto 0.3 % (0.0-0.4); Mean Corpuscular HGB Conc 31.5 g/dl (31.0-35.0); Mean Corpuscular Hemoglobin 27.3 pg (27.0-33.0); Mean Corpuscular Volume 86.9 fL (80.0-98.0); Mean Platelet Volume 10.7 fL (9.4-12.3); Monocytes Absolute Auto 0.6 X10*3/uL (0.1-1.2); Monocytes Percent Auto 8.5 % (2-11); Neutrophils Absolute Auto 3.8 x10*3/uL (2.0-8.3); Neutrophils Percent Auto 57.3 % (45-73); Platelet Count 233 X10*3/uL (160-400); Red Blood Count 4.28 X10*6/uL (4.20-5.50); White Blood Count 6.6 X10*3/uL (4.8-10.8)
[2022-06-26 08:58] LABS: Alanine Aminotransferase 26 U/L (0-31); Albumin Level 4.4 g/dL (3.5-5.0); Alkaline Phosphatase 84 U/L (39-117); Anion Gap 12 (12-20); Aspartate Amino Transferase 20 U/L (5-31); Bilirubin Total 0.6 mg/dL (0.0-1.0); Blood Urea Nitrogen 15 mg/dL (9-16); Calcium 9.5 mg/dL (8.4-10.2); Carbon Dioxide 28 mmol/L (22-29); Chloride 108 mmol/L (96-108); Cholesterol 157 mg/dL; Estimated Glomerular Filt Rate > 60; Glucose Fasting 92 mg/dL (60-99); HDL Cholesterol 36 mg/dL; Iron 102 mcg/dL (30-160); LDL Cholesterol Calculated 103 mg/dl; Percent Iron Saturation 34 % (15-50); Potassium 4.5 mmol/L (3.3-5.1); Sodium 143 mmol/L (135-145); Total Iron Binding Capacity 296 mcg/dL (228-428); Total Protein 7.4 g/dL (6.5-8.0); Triglycerides 94 mg/dL; Unsaturated Iron Binding 194 ug/dL
[2022-06-26 09:26] LABS: Folate 7.9 ng/mL (> or = 4.0); Thyroid Stimulating Hormone 0.53 uIU/mL (0.32-4.0); Vitamin B12 530 pg/mL (200-900); Vitamin D 25-OH Total 10.5 ng/mL (>30)
[2022-06-26 10:15] LABS: Appearance Urine Cloudy; Color Urine Yellow; Glucose Urine UA Negative (Negative); Leukocyte Esterase Urine Trace (Negative); Nitrite Urine Negative (Negative); Specific Gravity - Urine 1.025 (1.005-1.025); UMIC TRIGGER UACC YES; Urine Blood Negative (Negative); Urine Ketones Negative (Negative); Urine Protein Negative (Neg-Trace)
[2022-06-26 10:20] LABS: Bacteria Urine 1+ (None Seen); Hyaline Casts Urine 0-2 /LPF (0-2); RBC Urine 0-2 /HPF (0-2); UACC Culture Trigger YES
[2022-06-28 17:09] LABS: TS Negative Control Passed; TS Panel A 1; TS Panel B 1; TS Positive Control Passed; TSpotTB Negative (Negative)
== END 2022-06-26 07:57 | disposition home or self-care (01) ==
LOC: HO.LAB 07:56
PROVIDERS: PCP Internal Medicine; Visit Provider Internal Medicine
DX: E55.9 Vitamin D deficiency, unspecified (principal); E66.9 Obesity, unspecified; D64.9 Anemia, unspecified; R30.0 Dysuria; Z11.1 Encounter for screening for respiratory tuberculosis
CPT/HCPCS: 36415; 80053; 80061; 81001; 81003; 82306; 82607; 82746; 83540; 84443; 85025; 86481; 87086

== ENCOUNTER 2022-08-14 16:49 | Emergency (ER) | payer OTHER, SELFPAY ==
--- NOTE | 2022-08-14 16:53 | ED_ITS ---
HPI - General Adult General Chief complaint: General Medical <TATA Acevedo - Last Filed: 08/14/22 16:59> Stated complaint: ?breast infection, swollen <TATA Acevedo - Last Filed: 08/14/22 16:59> Time Seen by Provider: 08/14/22 23:18 <TATA Acevedo - Last Filed: 08/14/22 16:59> Source: patient <Jemima Arellano MD - Last Filed: 08/14/22 23:36> Mode of arrival: ambulatory <Jemima Arellano MD - Last Filed: 08/14/22 23:36> Limitations: no limitations <Jemima Arellano MD - Last Filed: 08/14/22 23:36> History of Present Illness HPI narrative: Patient comes to the emergency room complaining of a small dehiscence on the surgical site on her left breast. Patient states that she had a breast augmentation surgery done in [facility], 07/10/2022. Patient states that she completed a course of antibiotics p.o., and then she was prescribed some topical powder antibiotic which she has been using. Patient states that for the last week, she lifted something heavy and she was not supposed to. Since then, she has noticed a small dehiscence. Patient has fever chills, no pus drainage. Patient notice eschars over the surgical incision on the breast. <Jemima Arellano MD - Last Filed: 08/14/22 23:36> Related Data Home medications: Previous Rx's Medication Instructions Recorded cephalexin 500 mg capsule 500 mg PO BID #14 caps 08/14/22 doxycycline hyclate 100 mg capsule 100 mg PO BID #14 caps 08/14/22 <TATA Acevedo - Last Filed: 08/14/22 16:59> Allergies/adverse reactions: Allergies Allergy/AdvReac Type Severity Reaction Status Date / Time No Known Allergies Allergy Verified 07/04/22 08:02 <TATA Acevedo - Last Filed: 08/14/22 16:59> Review of Systems Review of Systems: Constitutional : No Weight loss, No Fever, No Chills, No Night Sweats, No Fatigue, No Malaise ENT/Mouth : No Hearing loss, No Ear Pain, No Nasal Congestion, No Sinus Pain, No Hoarseness, No sore throat, No Rhinorrhea, No Swallowing Difficulty Eyes: No Eye Pain, No Swelling, No Redness, No Foreign Body, No Discharge, No Vision Changes Cardiovascular : No Chest Pain, No SOB, No Dyspnea on Exertion, No Orthopnea, No Edema, No Palpitations Respiratory : No Cough, No Sputum, No Wheezing, No Smoke Exposure, No Dyspnea Gastrointestinal : No Nausea, No Vomiting, No Diarrhea, No Constipation, No abdominal Pain, No Hematochezia, No Melena Genitourinary : no irregular bleeding, No Dysuria, No Urinary Frequency, No Hematuria, No Urinary Incontinence, No Urgency, No Flank Pain, No Urinary Flow Changes, No Hesitancy Musculoskeletal : No joint pain, No Myalgias, No Joint Swelling Skin : I scar, dehiscence of surgical side of the breast on the left Neuro : No Weakness, No Numbness, No Paresthesias, No Loss of Consciousness, No Dizziness, No Headache Psych : No Anxiety/Panic, No Depression, No SI/HI/AH/VH, No Social Issues, Heme/Lymph: No Bruising, No Bleeding,No Lymphadenopathy Endocrine : No Polyuria, No Polydipsia, No Temperature Intolerance <Jemima Arellano MD - Last Filed: 08/14/22 23:36> [facility] Past Medical History Medical History: Medical History Anxiety Breast cyst Cervical cancer screening Cyst of upper eyelid Easy bruising Fibromyalgia GERD (gastroesophageal reflux disease) Hyperhidrosis of hands Hypovitaminosis D Missed menses Moderate recurrent major depression Obesity (BMI 30-39.9) Physical exam Physical exam, annual Polyarthralgia <TATA Acevedo - Last Filed: 08/14/22 16:59> Surgical History: Surgical History History of cholecystectomy History of tubal ligation <TATA Acevedo - Last Filed: 08/14/22 16:59> Family History Family History: Family History (Updated 07/04/22 @ 07:49 by DAVID Douglass) Father Diabetes Cancer Mother No problems noted. Paternal Grandmother Lupus Cancer Brother Automobile accident Maternal Grandfather Alzheimer disease <TATA Acevedo - Last Filed: 08/14/22 16:59> Social History Social History: Social History Household Members: Children Housing: Apartment Are you a primary care transition manager to a significant other at home: No Do you presently have visiting nurse or other home services: No Alcohol intake: never Patient Tobacco Use Status: Former Tobacco user Tobacco use type: Cigarette e-Cigarette/Vaping Use: Never Used Second Hand Smoke Exposure: Yes Substance Use Type: Marijuana Advance Directives: No Advance Directives Information Provided: No service: No Current occupational status: employed Current occupational exposures/hazards: No Cognitive needs: No Hearing needs: No Vision needs: Yes <TATA Acevedo - Last Filed: 08/14/22 16:59> Physical Exam ED Vital Signs: Vital Signs - 24 hr 08/14/22 16:54 Temperature 98.9 F Pulse Rate 85 Respiratory Rate 18 Blood Pressure 116/60 Pulse Oximetry 98 BMI result Body Mass Index 30.4 <TATA Acevedo - Last Filed: 08/14/22 16:59> Vital Signs - 24 hr 08/14/22 16:54 Temperature 98.9 F Pulse Rate 85 Respiratory Rate 18 Blood Pressure 116/60 Pulse Oximetry 98 BMI result Body Mass Index 30.4 <Jemima Arellano MD - Last Filed: 08/14/22 23:36> Const Other: Appearance: Alert. Oriented X3. No acute distress. Eyes: Pupils equal, round and reactive to light. ENT: Pharynx normal. Neck: Normal inspection. Neck supple. No lymph nodes noted. No crepitus CVS: Normal heart rate and rhythm. Pulses normal. Normal S1 and S2 Respiratory: No respiratory distress. Breath sounds normal. No Wheezing. No rales Abdomen: Soft and nontender. No rigidity. No distention. Skin: Skin warm and dry. Normal skin color. Patient has surgical wounds that are healing under both breasts. Right breast has a small site of dehiscence covered by an eschar, no signs of infection or cellulitis. Left breast has a slightly larger eschar and dehiscence. No cellulitis, no redness, or additional warmth Extremities: No lower extremity edema. No Lacerations. No Rash Neuro: Oriented X 3. No motor deficit. No sensory deficit. Moving all extremities. No slurred speech. CN 2 through 12 grossly intact Psych: calm, cooperative, normal affect <Jemima Arellano MD - Last Filed: 08/14/22 23:36> Course Course Course Narrative: This is an RME: Additional HPI, ROS, PE not included below will be deferred to primary provider. This is a 32-year-old female presenting with left-sided breast pain, tenderness, redness and warmth, patient reports she had breast augmentation done in [facility] on July 10, since then things have been going okay however she noted that her left breast his painful, tender, red. Patient hiered a nurse to help with dressing changes and it doesnt look right . No drains in place. Not followed by here. Reports subjective fevers, chills, headaches, fatigue, malaise. Reports they are silicone implants. PE deffered to primary provider Plans- labs, lactic, cultures <TATA Acevedo - Last Filed: 08/14/22 16:59> Medical Decision Making Medical Decision Making MDM Narrative: -I discussed the labs with the patient, white blood cell count normal, lactate normal. Patient will be started on antibiotics, there is very slight questionable area of crusty eschar. -patient instructed to follow-up with Dr. Sommers. Patient does not have a primary care physician or surgeon in the [facility]. -patient was given 1 dose of Keflex and doxycycline in the emergency room. <Jemima Arellano MD - Last Filed: 08/14/22 23:36> Differential Diagnosis Differential Diagnoses: The differential diagnosis associated with the presentation includes (Claudia lulitis, surgical site he since) <Jemima Arellano MD - Last Filed: 08/14/22 23:36> Lab Data Result Diagrams: 08/14/22 19:15 08/14/22 19:15 <TATA Acevedo - Last Filed: 08/14/22 16:59> Labs: Lab Results 08/14/22 08/14/22 08/14/22 Range/Units 19:13 19:15 19:15 WBC 7.3 (4.8-10.8) X10*3/uL RBC 3.92 L (4.20-5.50) X10*6/uL Hgb 10.9 L (12.0-16.0) g/dl Hct 34.3 L (37.0-47.0) % MCV 87.5 (80.0-98.0) fL MCH 27.8 (27.0-33.0) pg MCHC 31.8 (31.0-35.0) g/dl RDW 14.0 (11.0-16.0) % Plt Count 268 (160-400) X10*3/uL MPV 10.6 (9.4-12.3) fL Immature Gran % (Auto) 0.3 (0.0-0.4) % Neut % (Auto) 60.1 (45-73) % Lymph % (Auto) 29.6 (20-40) % Ransom % (Auto) 7.1 (2-11) % Eos % (Auto) 2.5 (0-4) % Baso % (Auto) 0.4 (0-2) % Lymph # (Auto) 2.2 (1.2-4.9) X10*3/uL Ransom # (Auto) 0.5 (0.1-1.2) X10*3/uL Eos # (Auto) 0.2 (0.0-0.4) X10*3/uL Baso # (Auto) 0.0 (0.0-0.2) X10*3/uL Abs Immat Gran (auto) 0.02 (0.00-0.03) X10*3/uL Absolute Neuts (auto) 4.4 (2.0-8.3) x10*3/uL Absolute Nucleated RBC 0.000 (0.0-0.012) X10*3/uL Nucleated RBC % (auto) 0.0 (0.0-0.2) /100WBC Sodium 141 (135-145) mmol/L Potassium 4.1 (3.3-5.1) mmol/L Chloride 108 (96-108) mmol/L Carbon Dioxide 27 (22-29) mmol/L Anion Gap 10 L (12-20) BUN 13 (9-16) mg/dL Creatinine 0.87 (0.5-1.4) mg/dL Estim Creat Clear Calc 85.6 Estimated GFR > 60 Random Glucose 89 (60-115) mg/dL Lactic Acid 1.3 (0.5-2.0) mmol/L Calcium 9.4 (8.4-10.2) mg/dL Magnesium 1.8 (1.6-2.6) mg/dL Total Bilirubin 0.2 (0.0-1.0) mg/dL AST 16 (5-31) U/L ALT 26 (0-31) U/L Alkaline Phosphatase 104 (39-117) U/L Total Protein 7.1 (6.5-8.0) g/dL Albumin 3.9 (3.5-5.0) g/dL COVID-19 (HOLLIE) (Negative) COVID-19 Clin Com 08/14/22 Range/Units 19:15 WBC (4.8-10.8) X10*3/uL RBC (4.20-5.50) X10*6/uL Hgb (12.0-16.0) g/dl Hct (37.0-47.0) % MCV (80.0-98.0) fL MCH (27.0-33.0) pg MCHC (31.0-35.0) g/dl RDW (11.0-16.0) % Plt Count (160-400) X10*3/uL MPV (9.4-12.3) fL Immature Gran % (Auto) (0.0-0.4) % Neut % (Auto) (45-73) % Lymph % (Auto) (20-40) % Ransom % (Auto) (2-11) % Eos % (Auto) (0-4) % Baso % (Auto) (0-2) % Lymph # (Auto) (1.2-4.9) X10*3/uL Ransom # (Auto) (0.1-1.2) X10*3/uL Eos # (Auto) (0.0-0.4) X10*3/uL Baso # (Auto) (0.0-0.2) X10*3/uL Abs Immat Gran (auto) (0.00-0.03) X10*3/uL Absolute Neuts (auto) (2.0-8.3) x10*3/uL Absolute Nucleated RBC (0.0-0.012) X10*3/uL Nucleated RBC % (auto) (0.0-0.2) /100WBC Sodium (135-145) mmol/L Potassium (3.3-5.1) mmol/L Chloride (96-108) mmol/L Carbon Dioxide (22-29) mmol/L Anion Gap (12-20) BUN (9-16) mg/dL Creatinine (0.5-1.4) mg/dL Estim Creat Clear Calc Estimated GFR Random Glucose (60-115) mg/dL Lactic Acid (0.5-2.0) mmol/L Calcium (8.4-10.2) mg/dL Magnesium (1.6-2.6) mg/dL Total Bilirubin (0.0-1.0) mg/dL AST (5-31) U/L ALT (0-31) U/L Alkaline Phosphatase (39-117) U/L Total Protein (6.5-8.0) g/dL Albumin (3.5-5.0) g/dL COVID-19 (HOLLIE) Negative (Negative) COVID-19 Clin Com See Note <TATA Acevedo - Last Filed: 08/14/22 16:59> Lab Results 08/14/22 08/14/22 08/14/22 Range/Units 19:13 19:15 19:15 WBC 7.3 (4.8-10.8) X10*3/uL RBC 3.92 L (4.20-5.50) X10*6/uL Hgb 10.9 L (12.0-16.0) g/dl Hct 34.3 L (37.0-47.0) % MCV 87.5 (80.0-98.0) fL MCH 27.8 (27.0-33.0) pg MCHC 31.8 (31.0-35.0) g/dl RDW 14.0 (11.0-16.0) % Plt Count 268 (160-400) X10*3/uL MPV 10.6 (9.4-12.3) fL Immature Gran % (Auto) 0.3 (0.0-0.4) % Neut % (Auto) 60.1 (45-73) % Lymph % (Auto) 29.6 (20-40) % Ransom % (Auto) 7.1 (2-11) % Eos % (Auto) 2.5 (0-4) % Baso % (Auto) 0.4 (0-2) % Lymph # (Auto) 2.2 (1.2-4.9) X10*3/uL Ransom # (Auto) 0.5 (0.1-1.2) X10*3/uL Eos # (Auto) 0.2 (0.0-0.4) X10*3/uL Baso # (Auto) 0.0 (0.0-0.2) X10*3/uL Abs Immat Gran (auto) 0.02 (0.00-0.03) X10*3/uL Absolute Neuts (auto) 4.4 (2.0-8.3) x10*3/uL Absolute Nucleated RBC 0.000 (0.0-0.012) X10*3/uL Nucleated RBC % (auto) 0.0 (0.0-0.2) /100WBC Sodium 141 (135-145) mmol/L Potassium 4.1 (3.3-5.1) mmol/L Chloride 108 (96-108) mmol/L Carbon Dioxide 27 (22-29) mmol/L Anion Gap 10 L (12-20) BUN 13 (9-16) mg/dL Creatinine 0.87 (0.5-1.4) mg/dL Estim Creat Clear Calc 85.6 Estimated GFR > 60 Random Glucose 89 (60-115) mg/dL Lactic Acid 1.3 (0.5-2.0) mmol/L Calcium 9.4 (8.4-10.2) mg/dL Magnesium 1.8 (1.6-2.6) mg/dL Total Bilirubin 0.2 (0.0-1.0) mg/dL AST 16 (5-31) U/L ALT 26 (0-31) U/L Alkaline Phosphatase 104 (39-117) U/L Total Protein 7.1 (6.5-8.0) g/dL Albumin 3.9 (3.5-5.0) g/dL COVID-19 (HOLLIE) (Negative) COVID-19 Clin Com 05/03/23 Range/Units 19:15 WBC (4.8-10.8) X10*3/uL RBC (4.20-5.50) X10*6/uL Hgb (12.0-16.0) g/dl Hct (37.0-47.0) % MCV (80.0-98.0) fL MCH (27.0-33.0) pg MCHC (31.0-35.0) g/dl RDW (11.0-16.0) % Plt Count (160-400) X10*3/uL MPV (9.4-12.3) fL Immature Gran % (Auto) (0.0-0.4) % Neut % (Auto) (45-73) % Lymph % (Auto) (20-40) % Ransom % (Auto) (2-11) % Eos % (Auto) (0-4) % Baso % (Auto) (0-2) % Lymph # (Auto) (1.2-4.9) X10*3/uL Ransom # (Auto) (0.1-1.2) X10*3/uL Eos # (Auto) (0.0-0.4) X10*3/uL Baso # (Auto) (0.0-0.2) X10*3/uL Abs Immat Gran (auto) (0.00-0.03) X10*3/uL Absolute Neuts (auto) (2.0-8.3) x10*3/uL Absolute Nucleated RBC (0.0-0.012) X10*3/uL Nucleated RBC % (auto) (0.0-0.2) /100WBC Sodium (135-145) mmol/L Potassium (3.3-5.1) mmol/L Chloride (96-108) mmol/L Carbon Dioxide (22-29) mmol/L Anion Gap (12-20) BUN (9-16) mg/dL Creatinine (0.5-1.4) mg/dL Estim Creat Clear Calc Estimated GFR Random Glucose (60-115) mg/dL Lactic Acid (0.5-2.0) mmol/L Calcium (8.4-10.2) mg/dL Magnesium (1.6-2.6) mg/dL Total Bilirubin (0.0-1.0) mg/dL AST (5-31) U/L ALT (0-31) U/L Alkaline Phosphatase (39-117) U/L Total Protein (6.5-8.0) g/dL Albumin (3.5-5.0) g/dL COVID-19 (HOLLIE) Negative (Negative) COVID-19 Clin Com See Note <Jemima Arellano MD - Last Filed: 08/14/22 23:36> Discharge Plan Discharge Clinical Impression: Dehiscence of external surgical wound <TATA Acevedo - Last Filed: 08/14/22 16:59> Patient Disposition: Home, Self-Care <TATA Acevedo - Last Filed: 08/14/22 16:59> Instructions: Wound Dehiscence (ED) <TATA Acevedo - Last Filed: 08/14/22 16:59> Additional Instructions: Please call surgery tomorrow to schedule an appointment. Please follow-up with your primary care physician tomorrow. If you have any worsening or new symptoms, please return to the emergency room or call 911 <TATA Acevedo - Last Filed: 08/14/22 16:59> Prescriptions: New cephalexin 500 mg capsule 500 mg PO BID Qty: 14 0RF doxycycline hyclate 100 mg capsule 100 mg PO BID Qty: 14 0RF <TATA Acevedo - Last Filed: 08/14/22 16:59> Referrals: Adrián Sommers MD [Physician] - 08/15/22 <TATA Acevedo - Last Filed: 08/14/22 16:59>
[2022-08-14 16:54] VITALS: BP 116/60; PULSE 85; RESP 18; TEMP 37.2; O2SAT 98; BMI 30.4
[2022-08-14 19:20] LABS: MANUAL DIFF FLAG NO
[2022-08-14 19:21] LABS: Basophils Percent Auto 0.4 % (0-2); Eosinophils Absolute Auto 0.2 X10*3/uL (0.0-0.4); Eosinophils Percent Auto 2.5 % (0-4); Hematocrit 34.3 % (37.0-47.0); Hemoglobin 10.9 g/dl (12.0-16.0); Imm Gran Abs Auto 0.02 X10*3/uL (0.00-0.03); Imm Gran Pct Auto 0.3 % (0.0-0.4); Lymphocytes Absolute Auto 2.2 X10*3/uL (1.2-4.9); Lymphocytes Percent Auto 29.6 % (20-40); Mean Corpuscular HGB Conc 31.8 g/dl (31.0-35.0); Mean Corpuscular Hemoglobin 27.8 pg (27.0-33.0); Mean Corpuscular Volume 87.5 fL (80.0-98.0); Mean Platelet Volume 10.6 fL (9.4-12.3); Monocytes Absolute Auto 0.5 X10*3/uL (0.1-1.2); Monocytes Percent Auto 7.1 % (2-11); Neutrophils Absolute Auto 4.4 x10*3/uL (2.0-8.3); Neutrophils Percent Auto 60.1 % (45-73); Platelet Count 268 X10*3/uL (160-400); Red Blood Count 3.92 X10*6/uL (4.20-5.50); White Blood Count 7.3 X10*3/uL (4.8-10.8)
[2022-08-14 19:42] LABS: COVID-19 Test Negative (Negative); IDNOW Serial# 08D9AD1C
[2022-08-14 19:44] LABS: Lactic Acid 1.3 mmol/L (0.5-2.0)
[2022-08-14 20:03] LABS: Alanine Aminotransferase 26 U/L (0-31); Albumin Level 3.9 g/dL (3.5-5.0); Alkaline Phosphatase 104 U/L (39-117); Anion Gap 10 (12-20); Aspartate Amino Transferase 16 U/L (5-31); Bilirubin Total 0.2 mg/dL (0.0-1.0); Blood Urea Nitrogen 13 mg/dL (9-16); Calcium 9.4 mg/dL (8.4-10.2); Carbon Dioxide 27 mmol/L (22-29); Chloride 108 mmol/L (96-108); Creatinine Clr Calc Pharmacy 85.6; Estimated Glomerular Filt Rate > 60; Glucose Random 89 mg/dL (60-115); Magnesium 1.8 mg/dL (1.6-2.6); Potassium 4.1 mmol/L (3.3-5.1); Sodium 141 mmol/L (135-145); Total Protein 7.1 g/dL (6.5-8.0)
[2022-08-14 23:41] VITALS: BP 103/56; PULSE 57; RESP 17; TEMP 36.9; O2SAT 97
[2022-08-14] MEDS: cephALEXin 500 MG CAPSULE PO (23:43)
[2022-08-14] MEDS: Doxycycline Monohydrate 100 MG CAPSULE PO (23:43)
== END 2022-08-14 23:45 | disposition home or self-care (01) ==
PROVIDERS: Physician Assistant; Emergency Provider Emergency Medicine; PCP Internal Medicine
DX: T81.31XA Disruption of external operation (surgical) wound, not elsewhere classified, initial encounter (principal); Y83.8 Other surgical procedures as the cause of abnormal reaction of the patient, or of later complication, without mention of misadventure at the time of the procedure; Y82.8 Other medical devices associated with adverse incidents; Y92.039 Unspecified place in apartment as the place of occurrence of the external cause; Z20.822 Contact with and (suspected) exposure to COVID-19
CPT/HCPCS: 80053; 83605; 83735; 85025; 87040; 87635; 99283

== ENCOUNTER 2022-09-01 19:18 | Emergency (ER) | payer OTHER, SELFPAY ==
[2022-09-01 19:22] VITALS: BP 114/55; PULSE 89; RESP 16; TEMP 37; O2SAT 98; BMI 32.2
--- NOTE | 2022-09-01 21:22 | PC.NURSE ---
pt c/o discharge from R nipple, had breast augmentation in [facility], c/o 10/10 pain not allowing her to raise arm w/o pain aox4
--- NOTE | 2022-09-01 22:15 | PC.NURSE ---
made aware by charge nurse that pt left without being seen by provider
== END 2022-09-01 22:58 | disposition left against medical advice (07) ==
PROVIDERS: Emergency Provider Emergency Medicine; PCP Internal Medicine
DX: R07.89 Other chest pain (principal); M79.601 Pain in right arm; N64.52 Nipple discharge
CPT/HCPCS: 99283

== ENCOUNTER 2022-10-23 22:05 | Emergency (ER) | payer OTHER, SELFPAY ==
[2022-10-23 22:10] VITALS: BP 112/47; PULSE 68; RESP 18; TEMP 36.8; O2SAT 98; BMI 33.4
[2022-10-23 22:34] LABS: MANUAL DIFF FLAG NO
[2022-10-23 22:36] LABS: Basophils Percent Auto 0.4 % (0-2); Eosinophils Absolute Auto 0.2 X10*3/uL (0.0-0.4); Eosinophils Percent Auto 2.2 % (0-4); Imm Gran Abs Auto 0.01 X10*3/uL (0.00-0.03); Imm Gran Pct Auto 0.1 % (0.0-0.4); Lymphocytes Absolute Auto 2.6 X10*3/uL (1.2-4.9); Lymphocytes Percent Auto 34.5 % (20-40); Mean Corpuscular HGB Conc 31.4 g/dl (31.0-35.0); Mean Corpuscular Volume 85.8 fL (80.0-98.0); Mean Platelet Volume 10.7 fL (9.4-12.3); Monocytes Absolute Auto 0.6 X10*3/uL (0.1-1.2); Monocytes Percent Auto 7.4 % (2-11); Neutrophils Absolute Auto 4.1 x10*3/uL (2.0-8.3); Neutrophils Percent Auto 55.4 % (45-73); Platelet Count 246 X10*3/uL (160-400); Red Blood Count 4.08 X10*6/uL (4.20-5.50); Red Cell Distribution Width 13.6 % (11.0-16.0); White Blood Count 7.4 X10*3/uL (4.8-10.8)
--- NOTE | 2022-10-23 22:46 | ED.GENADULT ---
HPI - General Adult General Chief complaint: Skin/Abscess/Foreign Body Stated complaint: Lump on breast Lft side opened Time Seen by Provider: 10/23/22 22:48 Source: patient Mode of arrival: ambulatory Limitations: no limitations History of Present Illness HPI narrative: 32-year-old female presents with concerns of abscess versus cellulitis to right breast she tells me that she has had this before. Patient had breast augmentation surgery done in June in [place], since then she reports she has had issues with abscesses and cellulitis her left breast she tells me she was seen here before for similar complaint. She reports it is much better than it was before however she notes that to the right of her right nipple there is an open area with redness, warmth and swelling. Denies fevers, chills, chest pain, shortness of breath, nausea, vomiting, abdominal pain, headache, vision changes, dizziness and weakness. Related Data Previous Rx's Medication Instructions Recorded cephalexin 500 mg capsule 500 mg PO BID #14 caps 08/14/22 doxycycline hyclate 100 mg capsule 100 mg PO BID #14 caps 08/14/22 cephalexin 500 mg tablet 500 mg PO Q6H 10 days #40 tabs 10/23/22 doxycycline hyclate 100 mg capsule 100 mg PO BID 10 days #20 caps 10/23/22 Allergies Allergy/AdvReac Type Severity Reaction Status Date / Time No Known Allergies Allergy Verified 10/23/22 22:19 Review of Systems Review of Systems: Constitutional : No Weight loss, No Fever, No Chills, No Fatigue, No Malaise ENT/Mouth : No sore throat, No Rhinorrhea Eyes: No Eye Pain, No Swelling, No Redness Cardiovascular : No Chest Pain, No SOB, No Dyspnea on Exertion, No Orthopnea, No Edema, No Palpitations Respiratory : No Cough, No Sputum, No Wheezing Gastrointestinal : No Nausea, No Vomiting, No Diarrhea, No Constipation, No abdominal Pain, No Hematochezia, No Melena Genitourinary : No Dysuria, No Urinary Frequency, No Hematuria, Musculoskeletal : No joint pain, No Myalgias, No Joint Swelling Skin : No Skin Lesions, + rash, Neuro : No Weakness, No Numbness, No Dizziness, No Headache Psych : No Anxiety/Panic, No Depression All other systems reviewed and are negative Yes all other systems are reviewed and are negative [facility] Past Medical History Attestation statement: The following information was validated with the patient. Source: old records reviewed and nursing notes reviewed Medical History Anxiety Breast cyst Cervical cancer screening Cyst of upper eyelid Easy bruising Fibromyalgia GERD (gastroesophageal reflux disease) Hyperhidrosis of hands Hypovitaminosis D Missed menses Moderate recurrent major depression Obesity (BMI 30-39.9) Physical exam Physical exam, annual Polyarthralgia Surgical History History of cholecystectomy History of tubal ligation Family History Family History (Updated 07/04/22 @ 07:49 by DAVID Douglass) Father Diabetes Cancer Mother No problems noted. Paternal Grandmother Lupus Cancer Brother Automobile accident Maternal Grandfather Alzheimer disease Social History Social History Household Members: Children Housing: Apartment Are you a primary primary care coordinator to a significant other at home: No Do you presently have visiting nurse or other home services: No Alcohol intake: never Patient Tobacco Use Status: Former Tobacco user Tobacco use type: Cigarette e-Cigarette/Vaping Use: Never Used Second Hand Smoke Exposure: Yes Substance Use Type: Marijuana Advance Directives: No Advance Directives Information Provided: No service: No Current occupational status: employed Current occupational exposures/hazards: No Cognitive needs: No Hearing needs: No Vision needs: Yes Physical Exam ED Vital Signs: Vital Signs - 24 hr 10/23/22 22:10 Temperature 98.2 F Pulse Rate 68 Respiratory Rate 18 Blood Pressure 112/47 L Pulse Oximetry 98 Oxygen Delivery Method Room Air BMI result Body Mass Index 33.4 vss Appearance: Alert.? Oriented X3.? No acute distress.? Head: Normocephalic, atraumatic, no step-offs or deformities Eyes: Pupils equal, round and reactive to light.? ENT: Pharynx normal.? Neck: Normal inspection.? Neck supple.? CVS: Normal heart rate and rhythm.? Pulses normal.? Respiratory: No respiratory distress.? Breath sounds normal.? Abdomen: Soft and nontender.? Skin: Skin warm and dry.? Normal skin color.? Normal skin turgor.? Extremities: No lower extremity edema.? No calf ttp. 5/5 strength to bilateral upper and lower extremities Sensative exam: W/ TATA-Kaelyn Cande as application technical designer. There is errythema and warmth to Right breast areola at the 9 o'clock position . No fluctuant area. Likely developing abscess. Neuro: Oriented X 3.? No motor deficit.? No sensory deficit. CN 2-12 intact Course Reevaluation(s) Reevaluation #1: CBC unremarkable. Chemistry with no acute findings. At this time patient be discharged home with doxycycline and Keflex. Will have her follow up with General surgery. Educated patient on diagnosis and treatment plan, answered all question, patient verbalizes understanding. At this time patient will be discharged home, advised to return with new or worsening symptoms. Educated on worrisome signs and symptoms and when to return. At this time I feel comfortable discharge home. Time: 22:53 Medical Decision Making Medical Decision Making [facility] Narrative: 32-year-old female oral presents with irritation to right breast, concerned she may have an abscess or cellulitis. This has happened before. History of breast augmentation surgery. Physical exam significant for Sensative exam: W/ BEVERLEY Castellon as application technical designer. There is errythema and warmth to Right breast areola at the 9 o'clock position . No fluctuant area. Likely developing abscess. Physical exam concerning for developing abscess with overlying cellulitis. No abscess at this time. No signs of necrotizing infection, gangrene. Plan discharge from the waiting room with p.o. antibiotics. Will have her follow up with General surgery. Differential Diagnosis Differential Diagnoses: The differential diagnosis associated with the presentation includes Physical exam concerning for developing abscess with overlying cellulitis. No abscess at this time. No signs of necrotizing infection, gangrene. Admission/Observation Consideration of admission/observation: Escalation of care including admission/observation considered Lab Data [facility] Lab Attestation statement: I reviewed the patient's lab results. 10/23/22 22:30 10/23/22 22:30 Labs: Lab Results 10/23/22 10/23/22 Range/Units 22:30 22:30 WBC 7.4 (4.8-10.8) X10*3/uL RBC 4.08 L (4.20-5.50) X10*6/uL Hgb 11.0 L (12.0-16.0) g/dl Hct 35.0 L (37.0-47.0) % MCV 85.8 (80.0-98.0) fL MCH 27.0 (27.0-33.0) pg MCHC 31.4 (31.0-35.0) g/dl RDW 13.6 (11.0-16.0) % Plt Count 246 (160-400) X10*3/uL MPV 10.7 (9.4-12.3) fL Immature Gran % (Auto) 0.1 (0.0-0.4) % Neut % (Auto) 55.4 (45-73) % Lymph % (Auto) 34.5 (20-40) % [place] % (Auto) 7.4 (2-11) % Eos % (Auto) 2.2 (0-4) % Baso % (Auto) 0.4 (0-2) % Lymph # (Auto) 2.6 (1.2-4.9) X10*3/uL [place] # (Auto) 0.6 (0.1-1.2) X10*3/uL Eos # (Auto) 0.2 (0.0-0.4) X10*3/uL Baso # (Auto) 0.0 (0.0-0.2) X10*3/uL Abs Immat Gran (auto) 0.01 (0.00-0.03) X10*3/uL Absolute Neuts (auto) 4.1 (2.0-8.3) x10*3/uL Absolute Nucleated RBC 0.000 (0.0-0.012) X10*3/uL Nucleated RBC % (auto) 0.0 (0.0-0.2) /100WBC Sodium 140 (135-145) mmol/L Potassium 4.3 (3.3-5.1) mmol/L Chloride 107 (96-108) mmol/L Carbon Dioxide 27 (22-29) mmol/L Anion Gap 10 L (12-20) BUN 17 H (9-16) mg/dL Creatinine 0.78 (0.5-1.4) mg/dL Estim Creat Clear Calc 100.1 Estimated GFR > 60 Random Glucose 111 (60-115) mg/dL Calcium 9.9 (8.4-10.2) mg/dL Total Bilirubin 0.2 (0.0-1.0) mg/dL AST 33 H (5-31) U/L ALT 63 H (0-31) U/L Alkaline Phosphatase 104 (39-117) U/L Total Protein 7.5 (6.5-8.0) g/dL Albumin 4.0 (3.5-5.0) g/dL Core Measures AMI core measures followed: Yes Measure exclusions: not indicated Critical Care Time Critical Care Time Critical Care Time: No Discharge Plan Discharge Clinical Impression: Cellulitis of breast, Cellulitis Patient Disposition: Home, Self-Care Instructions: Cellulitis (DC), Warm Compress or Soak (ED) Additional Instructions: Take your medications as prescribed. If you were prescribed antibiotics today, it is important that you take your medication to their entirety, do not skip any doses, do not finish them early. Follow-up with your primary care provider this week. Return to the emergency department with new or worsening symptoms. Such as fevers, chills, chest pain, shortness of breath, nausea, vomiting, dizziness, headache, vision changes, lethargy In case of emergency call 911 Prescriptions: New doxycycline hyclate 100 mg capsule 100 mg PO BID 10 Days Qty: 20 0RF cephalexin 500 mg tablet 500 mg PO Q6H 10 Days Qty: 40 0RF No Action cephalexin 500 mg capsule 500 mg PO BID Qty: 14 0RF doxycycline hyclate 100 mg capsule 100 mg PO BID Qty: 14 0RF Referrals: [facility] General Surgeons [Provider Group] - 2 days Yolanda Mcfarlane MD [Primary Care Provider] - 2 days Stand Alone Forms: Work/School Release
[2022-10-23 22:51] LABS: Alanine Aminotransferase 63 U/L (0-31); Alkaline Phosphatase 104 U/L (39-117); Anion Gap 10 (12-20); Aspartate Amino Transferase 33 U/L (5-31); Bilirubin Total 0.2 mg/dL (0.0-1.0); Blood Urea Nitrogen 17 mg/dL (9-16); Calcium 9.9 mg/dL (8.4-10.2); Carbon Dioxide 27 mmol/L (22-29); Chloride 107 mmol/L (96-108); Creatinine Clr Calc Pharmacy 100.1; Estimated Glomerular Filt Rate > 60; Glucose Random 111 mg/dL (60-115); Potassium 4.3 mmol/L (3.3-5.1); Sodium 140 mmol/L (135-145); Total Protein 7.5 g/dL (6.5-8.0)
== END 2022-10-23 23:19 | disposition home or self-care (01) ==
PROVIDERS: Emergency Provider Emergency Medicine Emergency Medical Services; PCP Internal Medicine
DX: N61.0 Mastitis without abscess (principal); Z87.891 Personal history of nicotine dependence
CPT/HCPCS: 36415; 80053; 85025; 99282; 99283

== ENCOUNTER 2023-03-29 19:28 | Emergency (ER) | payer OTHER, SELFPAY ==
[2023-03-29 20:18] VITALS: BP 112/70; PULSE 65; RESP 18; TEMP 36.6; O2SAT 99; BMI 30.2
[2023-03-29 20:54] LABS: IDNOW Serial# 58CA691E; Strep A Nucleic Acid Negative (Negative)
[2023-03-29 21:21] LABS: Influenza A PCR NEGATIVE (Negative); Influenza B PCR NEGATIVE (Negative); Resp Syncy Virus RNA Qual PCR NEGATIVE (Negative); SARS COV2 PCR INHOUSE NEGATIVE (Negative)
--- NOTE | 2023-03-29 21:48 | ED.URI ---
HPI - URI/Sore Throat General Chief Complaint: Upper Respiratory Symptoms Stated Complaint: cough, sore throat Time Seen by Provider: 03/29/23 21:12 Source: patient Mode of arrival: ambulatory Limitations: no limitations History of Present Illness HPI Narrative: 33-year-old female with a history of fibromyalgia, polyarthritis, chronic fatigue, chest pain, anxiety who presents emergency department for evaluation of cough x2 weeks. Patient states she has a cough which is productive of yellow mucus and occasionally she is coughing up blood. She states the last 2-3 days the cough is gotten worse. She is also complaining chest pain, she points the center of her chest states the pain is a sharp pain which is worse with breathing, coughing and movement. She had subjective fever and chills at home but did not that her temperature. She feels short of breath and has dyspnea on exertion. She denied nausea, vomiting, diarrhea, myalgias arthralgias. She is complaining of a sore throat as well. Patient is not a smoker. Related Data Previous Rx's Medication Instructions Recorded cephalexin 500 mg capsule 500 mg PO BID #14 caps 08/14/22 doxycycline hyclate 100 mg capsule 100 mg PO BID #14 caps 08/14/22 cephalexin 500 mg tablet 500 mg PO Q6H 10 days #40 tabs 10/23/22 doxycycline hyclate 100 mg capsule 100 mg PO BID 10 days #20 caps 10/23/22 acetaminophen 500 mg tablet 1,000 mg (2 x 500 mg) PO Q6H PRN 03/29/23 (Tylenol Extra Strength) fever or pain #20 tabs amoxicillin 500 mg capsule 1,000 mg (2 x 500 mg) PO Q12H 5 03/29/23 days #20 caps ibuprofen 400 mg tablet 400 mg PO TID PRN fever or pain 03/29/23 #30 tabs Allergies Allergy/AdvReac Type Severity Reaction Status Date / Time Seasonal Allergies Allergy Runny Nose Verified 03/29/23 20:22 Review of Systems Review of Systems: Yes all other systems are reviewed and are negative [facility] Past Medical History [facility] Narrative: Social history: She denies tobacco, alcohol drug use. 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 Paternal Grandmother Lupus Cancer Brother Automobile accident Maternal Grandfather Alzheimer disease Social History Social History Household Members: Children Housing: Apartment Are you a primary aged or disabled carer to a significant other at home: No Do you presently have visiting nurse or other home services: No Alcohol intake: never Patient Tobacco Use Status: Former Tobacco user Tobacco use type: Cigarette e-Cigarette/Vaping Use: Never Used Second Hand Smoke Exposure: Yes Substance Use Type: Marijuana Advance Directives: No Advance Directives Information Provided: No service: No Current occupational status: employed Current occupational exposures/hazards: No Cognitive needs: No Hearing needs: No Vision needs: Yes Physical Exam Vital Signs: Vital Signs: Last Vital Signs Temp 97.8 F 03/29/23 20:18 Pulse 65 03/29/23 20:18 Resp 18 03/29/23 20:18 BP 112/70 03/29/23 20:18 Pulse Ox 99 03/29/23 20:18 O2 Del Method Room Air 03/29/23 20:18 BMI result Body Mass Index 30.2 Vital signs were normal Exam: General: Awake, alert in no distress Head: Normocephalic, atraumatic EENT: PERRL, Lids normal, sclera normal, conjunctiva normal, nose normal , ears normal, throat without erythema or exudates Neck: Supple, no adenopathy, no trachea midline or C-spine tenderness Lung: breath sounds symmetric, no wheezing, rales or rhonchi Chest: symmetric movement, tender sternum and costochondral joints bilaterally Heart: regular rate and rhythm, normal S1, S2 no murmurs or rubs Abdomen: soft, non-tender, nondistended, normal bowel sounds Back: no vertebral tenderness, no CVAT Extremities: no deformities, moves all extremities symmetrically Neuro: Awake, alert, oriented, normal speech, moves all extremities symmetrically Psych: Pleasant, cooperative Medical Decision Making Medical Decision Making MDM Narrative: 33-year-old female with a history of fibromyalgia, polyarthritis, chronic fatigue, chest pain, anxiety who presents emergency department for evaluation of cough x2 weeks. Patient's cough is productive of yellow sputum with occasional blood, she states the cough is gotten worse and she is feeling short of breath having dyspnea on exertion. She also complained of sore throat. Physical exam revealed no mole vital signs. Patient did have chest wall tenderness consistent with costochondritis/chest wall joint sprain most likely caused by her cough. Patient's COVID-19, RSV, influenza and rapid strep test were negative. Given the patient's hemoptysis she will be treated with both Zithromax Z-Fazal and amoxicillin 1000 mg twice a day for 5 days. She was prescribed ibuprofen and Tylenol advised to stop taking Tylenol cold and Aleve/naproxen. She was given a work note. Differential Diagnosis Differential Diagnoses: The differential diagnosis associated with the presentation includes Differential diagnosis includes was not limited to pneumonia, bronchitis, viral syndrome, COVID-19, influenza, RSV, strep throat Lab Data Labs: Lab Results 03/29/23 Range/Units 20:34 Influenza Type A (PCR) NEGATIVE (Negative) Influenza Type B (PCR) NEGATIVE (Negative) RSV RNA Qual (PCR) NEGATIVE (Negative) SARS-CoV-2 RNA (RT-PCR) NEGATIVE (Negative) S. pyogenes GrpA MARIZOL Negative (Negative) Discharge Plan Discharge Clinical Impression: Bronchitis, Cough with hemoptysis Patient Disposition: Home, Self-Care Instructions: Acute Bronchitis (ED), Hemoptysis (ED) Additional Instructions: Your COVID-19, influenza, RSV and rapid strep test were all negative. Your symptoms are consistent with an infection of your breathing tubes (bronchial). You most likely have a viral infection but because your coughing up blood I want to treat you like this is a bacterial infection causing your bronchitis. Take Zithromax (azithromycin) Z-Fazal as prescribed. Day 1 take 2 pills, each day after that take 1 pill for total of 5 days. This medication states in your system for 7-10 days and continues to work despite only taking it for 5 days. Take amoxicillin 500 mg pills, 2 pills, every 12 hours (2 times a day) for 5 days. Follow-up with your doctor in 2 days. Please return to the emergency department if your symptoms get worse or if you develop any symptoms that are concerning to you. Please see work note Stop taking Tylenol cold and naproxen/Aleve while you are taking the above pain medications. Prescriptions: New amoxicillin 500 mg capsule 1,000 mg PO Q12H 5 Days Qty: 20 0RF acetaminophen [Tylenol Extra Strength] 500 mg tablet 1,000 mg PO Q6H PRN (Reason: fever or pain) Qty: 20 0RF ibuprofen 400 mg tablet 400 mg PO TID PRN (Reason: fever or pain) Qty: 30 0RF No Action cephalexin 500 mg capsule 500 mg PO BID Qty: 14 0RF doxycycline hyclate 100 mg capsule 100 mg PO BID Qty: 14 0RF doxycycline hyclate 100 mg capsule 100 mg PO BID 10 Days Qty: 20 0RF cephalexin 500 mg tablet 500 mg PO Q6H 10 Days Qty: 40 0RF Stand Alone Forms: Work/School Release
[2023-03-29] MEDS: Azithromycin 500 MG TABLET PO (21:59)
[2023-03-29] MEDS: Amoxicillin 500 MG CAPSULE 1000 MG PO (21:59)
== END 2023-03-29 22:05 | disposition home or self-care (01) ==
PROVIDERS: Emergency Provider Emergency Medicine Emergency Medical Services; PCP Internal Medicine
DX: J40 Bronchitis, not specified as acute or chronic (principal); R05.9 Cough, unspecified; R04.2 Hemoptysis; Z20.822 Contact with and (suspected) exposure to COVID-19; Z20.828 Contact with and (suspected) exposure to other viral communicable diseases; Z87.891 Personal history of nicotine dependence; F12.90 Cannabis use, unspecified, uncomplicated
CPT/HCPCS: 0241U; 87651; 99282; 99283

== ENCOUNTER 2023-08-27 20:39 | Emergency (ER) | payer OTHER, SELFPAY | END 2023-08-27 21:29 | disposition left against medical advice (07) | PROVIDERS: Emergency Provider Emergency Medicine; PCP Internal Medicine | DX: Z53.21 Procedure and treatment not carried out due to patient leaving prior to being seen by health care provider (principal); R52 Pain, unspecified ==

== ENCOUNTER 2023-11-03 09:03 | Outpatient (AMB) | payer OTHER, SELFPAY ==
--- NOTE | 2023-11-03 09:06 | A.OFFPC_ITS ---
Intake Visit Reasons: TB shot Allergies Seasonal Allergies Allergy (Verified 03/29/23 20:22) Runny Nose Tobacco use date assessed: 06/27/22 [facility] Medical History Moderate recurrent major depression Polyarthralgia Easy bruising GERD (gastroesophageal reflux disease) Physical exam Missed menses Fibromyalgia Hypovitaminosis D Obesity (BMI 30-39.9) Hyperhidrosis of hands Breast cyst Cyst of upper eyelid Cervical cancer screening Physical exam, annual Anxiety Surgical History History of tubal ligation History of cholecystectomy Family History Father Diabetes Cancer Mother No problems noted. Paternal Grandmother Lupus Cancer Brother Automobile accident Maternal Grandfather Alzheimer disease Social History Household Members: Children Housing: Apartment Are you a primary senior caregiver to a significant other at home: No Do you presently have visiting nurse or other home services: No Alcohol intake: never Patient Tobacco Use Status: Former Tobacco user Tobacco use type: Cigarette e-Cigarette/Vaping Use: Never Used Second Hand Smoke Exposure: Yes Substance Use Type: Marijuana service: No Current occupational status: employed Current occupational exposures/hazards: No Cognitive needs: No Hearing needs: No Vision needs: Yes Questionnaire Thrive Questionnaire Date Thrive assessed: 07/04/22 TRACE-7 AMB Questionnaire TRACE-7 Date TRACE - 7 assessed: 07/04/22 Source: Developed by Drs. Awais Sweet, Hannah Saucedo, Oral Momin and colleagues, with an educational rakesh from [email or web address]. Physical exam (Primary Care) Tobacco/Smoking Status: Tobacco use Status Tobacco use date assessed 06/27/22 11/03/23 09:06 Patient Tobacco Use Status Former Tobacco user 11/03/23 09:06 Tobacco use type Cigarette 11/03/23 09:06 e-Cigarette/Vaping Use Never Used 11/03/23 09:06 Thrive Assessment: Date of Thrive Assessment Date Thrive assessed 07/04/22 11/03/23 09:06 Office Meds tuberculin PPD 5 tub. unit/0.1 mL intradermal injection solution Performing Provider: Yolanda Rodriguez MD [facility] Administered by: Carolina Venegas RN on 11/03/23 09:19 Dose Route Admin Location Dispensed Lot Number Expiration Date NDC Plug Maker 0.1 mL intradermal 0.1 mL [id number] 09/11/26 Assessment and Plan Assessment & Plan Orders: Orders AMB PPD Planted Today Z11.1 - Encounter for screening for respiratory tuberculosis Coding Level of Care Code Procedure Only
== END 2023-11-03 09:21 | disposition home or self-care (01) ==
PROVIDERS: PCP Internal Medicine; Visit Provider Internal Medicine
DX: Z11.1 Encounter for screening for respiratory tuberculosis (principal)
CPT/HCPCS: 86580

== ENCOUNTER 2023-11-24 11:01 | Outpatient (AMB) | payer OTHER, SELFPAY ==
[2023-11-24 11:15] VITALS: BP 110/78
--- NOTE | 2023-11-24 11:15 | MHC.PC.OV ---
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 Accompanied by: Self / Same As Patient Allergies Seasonal Allergies Allergy (Verified 11/24/23 11:26) Runny Nose Medication List - Last Reconciled 11/24/23 by Yolanda Rodriguez MD No Known Home Meds Tobacco use date assessed: 11/24/23 Dental Screening Dental Screen Date: 11/24/23 Did you have a dental visit in the last 12 months?: Yes Did you have a dental problem in the last 6 months where you did not have access to dental care?: No Was dental information given to patient?: Patient has dentist HPI HPI Comments History of Present Illness Details This is a 33-year-old female with anxiety that comes today complaining of anxiety but declines any counseling or treatment. She does have iron-deficiency anemia and CBC will be ordered. She denies any chest pain or shortness on breath. [facility] Medical History (Updated 11/24/23 @ 11:41 by Yolanda Rodriguez MD) Moderate recurrent major depression Polyarthralgia Easy bruising GERD (gastroesophageal reflux disease) Physical exam Missed menses Fibromyalgia Hypovitaminosis D Obesity (BMI 30-39.9) Hyperhidrosis of hands Breast cyst Cyst of upper eyelid Cervical cancer screening Physical exam, annual Anxiety Surgical History History of tubal ligation History of cholecystectomy Family History Father Diabetes Cancer Mother No problems noted. Paternal Grandmother Lupus Cancer Brother Automobile accident Maternal Grandfather Alzheimer disease Social History Household Members: Children Housing: Apartment Are you a primary animal care worker to a significant other at home: No Do you presently have visiting nurse or other home services: No Alcohol intake: never Patient Tobacco Use Status: Former Tobacco user Tobacco use type: Cigarette e-Cigarette/Vaping Use: Never Used Second Hand Smoke Exposure: Yes Substance Use Type: Marijuana service: No Current occupational status: employed Current occupational exposures/hazards: No Cognitive needs: No Hearing needs: No Vision needs: Yes Questionnaire PHQ-9 Over the last 2 weeks, how often have you been bothered by any of the following problems? 1. Little interest or pleasure in doing things: not at all 2. Feeling down, depressed, or hopeless: not at all 3. Trouble falling or staying asleep, or sleeping too much: not at all 4. Feeling tired or having little energy: not at all 5. Poor appetite or overeating: not at all 6. Feeling bad about yourself - or that you are a failure or have let yourself or your family down: not at all 7. Trouble concentrating on things, such as reading the newspaper or watching television: not at all 8. Moving or speaking so slowly that other people could have noticed. Or the opposite - being so fidgety or restless that you have been moving around a lot more than usual: not at all 9. Thoughts that you would be better off or of hurting yourself in some way: not at all Total score: 0 Depression Screening Interpretation: Negative Depression Screening Done: Yes 19697 - PHQ-9 Billing: Yes Source: Developed by Drs. Awais Sweet, Hannah Saucedo, Oral Momin and colleagues, with an educational rakesh from [employer]. Thrive Questionnaire Date Thrive assessed: 11/24/23 I am a: Patient What is your living situation today?: I have a steady place to live Within the past 12 months, did the food you bought not last and you didn't have the money to get more?: Never true Within the past 12 months, did you worry whether your food would run out before you got money to buy more?: Never true Do you have trouble paying for medicines?: No Do you have trouble getting transportation to medical appointments?: No Do you have trouble paying your heating and electricity bill?: No Do you have trouble taking care of your child, family member or friend?: No Do you have trouble with day-to-day activities such as bathing, preparing meals, shopping, managing finances, etc.?: No Are you currently unemployed and looking for a job?: No Are you interested in more education?: No Please select the resources that you would like help with: None Currently or been in a relationship where the following occur: No concerns reported THRIVE Score: 0 AUDIT C Alcohol Use Questionnaire (AUDIT-C) 1. How often do you have a drink containing alcohol?: Monthly or less 2. How many drinks containing alcohol do you have on a typical day when you are drinking?: 1 or 2 3. How often do you have six or more drinks on one occasion?: Never Total Score: 1 Score Reviewed/Action Taken: No TRACE-7 AMB Questionnaire TRACE-7 Date TRACE - 7 assessed: 11/24/23 Feeling nervous, anxious, or on edge: 3 = Nearly every day Not being able to stop or control worryin = More than half the days Worrying too much about different things: 3 = Nearly every day Trouble relaxin = Nearly every day Being so restless that it is hard to sit still: 3 = Nearly every day Becoming easily annoyed or irritable: 3 = Nearly every day Feeling afraid as if something awful might happen: 3 = Nearly every day Total TRACE-7 score (0-4 normal; 5-9 mild; 10-14 moderate; 15-21 severe): 20 Source: Developed by Drs. Awais Sweet, Hannah Saucedo, Oral Momin and colleagues, with an educational rakesh from [employer]. TRACE-7 Assessment Billing TRACE-7 Assessment Tool: TRACE-7 Assessment 61927 Review of Systems Const All systems reviewed & are unremarkable except as noted in HPI and below Card Denies chest pain at rest, Denies chest pain with activity, Denies edema, Denies irregular heart rhythm, Denies claudication, Denies dyspnea, Denies dyspnea on exertion, Denies orthopnea, Denies paroxysmal nocturnal dyspnea and Denies slow heart rate Resp Denies cough, Denies dyspnea and Denies dyspnea on exertion GI Denies abdominal pain, Denies change in bowel habits, Denies excessive flatus, Denies nausea and Denies vomiting Denies urinary incontinence, Denies urinary hesitancy and Denies urinary urgency Musc Denies abnormal gait, Denies atrophy, Denies deformity and Denies limited range of motion Skin/Breast Denies bleeding lesions, Denies changing lesions and Denies rash Neuro Denies abnormal gait and Denies lack of coordination Physical exam (Primary Care) Vital Signs: Last Vital Signs BP 110/78 11/24/23 11:15 BMI result Body Mass Index 30.0 BMI Assessment/Plan discussion: High BMI High, discussed plan: lifestyle, weight reduction, dietary and physical activity Tobacco/Smoking Status: Tobacco use Status Tobacco use date assessed 11/24/23 11/24/23 11:22 Patient Tobacco Use Status Former Tobacco user 11/24/23 11:22 Tobacco use type Cigarette 11/24/23 11:22 e-Cigarette/Vaping Use Never Used 11/24/23 11:22 PHQ-9: PHQ-9 Score PHQ-9: Total score 0 11/24/23 11:22 Depression Screening Interpretation: Negative Thrive Assessment: Date of Thrive Assessment Date Thrive assessed 11/24/23 11/24/23 11:22 Currently or been in a relationship where the following occur: No concerns reported Resp Effort & Inspection: normal respiratory effort Auscultation: clear to auscultation bilaterally Cardio Jugular venous distension: no JVD Rate: regular rate Rhythm: regular rhythm Heart sounds: S1 normal heart sound present and S2 normal heart sound present Extrem General: Yes full ROM Assessment and Plan Assessment & Plan (1) Anxiety: Code(s): F41.9 - Anxiety disorder, unspecified Plan: Consider counseling. (2) Iron deficiency anemia due to chronic blood loss: Code(s): D50.0 - Iron deficiency anemia secondary to blood loss (chronic) Plan: Repeat hemoglobin. Orders: Orders Complete Blood Count Auto Diff Today D64.9 - Anemia, unspecified IRON PROFILE Today D64.9 - Anemia, unspecified T Spot TB Today Z11.1 - Encounter for screening for respiratory tuberculosis Coding Level of Care Code Est Pt Level 3 (27097) Complex EM visit Add On G2211 Diagnoses Anxiety F41.9 Iron deficiency anemia due to chronic blood loss D50.0 Additional Codes TRACE-7 Assessment Billing - TRACE-7 Assessment Tool: TRACE-7 Assessment 45261 ([id number]) Time Spent (min) 18
== END 2023-11-24 11:32 | disposition home or self-care (01) ==
PROVIDERS: PCP Internal Medicine; Visit Provider Internal Medicine
DX: D50.0 Iron deficiency anemia secondary to blood loss (chronic) (principal); F41.9 Anxiety disorder, unspecified
CPT/HCPCS: 99213; G2211

== ENCOUNTER 2023-11-24 11:49 | Outpatient (REF) | payer OTHER, SELFPAY ==
[2023-11-24 12:04] LABS: MANUAL DIFF FLAG NO
[2023-11-24 12:50] LABS: Basophils Percent Auto 0.5 % (0-2); Eosinophils Absolute Auto 0.1 X10*3/uL (0.0-0.4); Eosinophils Percent Auto 2.3 % (0-4); Hematocrit 36.4 % (37.0-47.0); Hemoglobin 11.5 g/dl (12.0-16.0); Imm Gran Abs Auto 0.06 X10*3/uL (0.00-0.03); Imm Gran Pct Auto 1.1 % (0.0-0.4); Lymphocytes Absolute Auto 1.5 X10*3/uL (1.2-4.9); Lymphocytes Percent Auto 27.3 % (20-40); Mean Corpuscular HGB Conc 31.6 g/dl (31.0-35.0); Mean Corpuscular Hemoglobin 27.8 pg (27.0-33.0); Mean Corpuscular Volume 88.1 fL (80.0-98.0); Mean Platelet Volume 11.1 fL (9.4-12.3); Monocytes Absolute Auto 0.4 X10*3/uL (0.1-1.2); Monocytes Percent Auto 6.5 % (2-11); Neutrophils Absolute Auto 3.5 x10*3/uL (2.0-8.3); Neutrophils Percent Auto 62.3 % (45-73); Platelet Count 262 X10*3/uL (160-400); Red Blood Count 4.13 X10*6/uL (4.20-5.50); Red Cell Distribution Width 13.1 % (11.0-16.0); White Blood Count 5.6 X10*3/uL (4.8-10.8)
[2023-11-24 13:30] LABS: Iron 45 mcg/dL (30-160); Percent Iron Saturation 15 % (15-50); Total Iron Binding Capacity 299 mcg/dL (228-428); Unsaturated Iron Binding 254 ug/dL
[2023-12-01 13:19] LABS: TS Negative Control Passed; TS Panel A 0; TS Panel B 0
[2023-12-01 13:20] LABS: TS Positive Control Passed
[2023-12-01 13:21] LABS: TSpotTB Negative
== END 2023-11-24 11:50 | disposition home or self-care (01) ==
LOC: HO.LAB 11:49
PROVIDERS: PCP Internal Medicine; Visit Provider Internal Medicine
DX: D64.9 Anemia, unspecified (principal); Z11.1 Encounter for screening for respiratory tuberculosis
CPT/HCPCS: 36415; 83540; 85025; 86481

== ENCOUNTER 2024-01-13 22:41 | Emergency (ER) | payer OTHER, SELFPAY ==
[2024-01-13 23:03] VITALS: BP 97/36; PULSE 66; RESP 18; TEMP 36.6; O2SAT 97; BMI 29.6
[2024-01-13 23:36] LABS: Hematocrit 33.9 % (37.0-47.0); Mean Corpuscular HGB Conc 32.4 g/dl (31.0-35.0); Mean Corpuscular Hemoglobin 28.4 pg (27.0-33.0); Mean Corpuscular Volume 87.6 fL (80.0-98.0); Mean Platelet Volume 10.7 fL (9.4-12.3); Platelet Count 228 X10*3/uL (160-400); Red Blood Count 3.87 X10*6/uL (4.20-5.50); White Blood Count 7.2 X10*3/uL (4.8-10.8)
[2024-01-13 23:38] LABS: Appearance Urine Clear; Color Urine Dark Yellow; Glucose Urine UA Negative (Negative); Leukocyte Esterase Urine Negative (Negative); Nitrite Urine Negative (Negative); Specific Gravity - Urine >= 1.030 (1.005-1.025); Urine Blood Negative (Negative); Urine Ketones Trace mg/dL (Negative); Urine Protein Trace mg/dL (Neg-Trace)
[2024-01-13 23:48] LABS: Anion Gap 12 (12-20); Blood Urea Nitrogen 15 mg/dL (9-16); Calcium 9.7 mg/dL (8.4-10.2); Carbon Dioxide 26 mmol/L (22-29); Chloride 108 mmol/L (96-108); Estimated Glomerular Filt Rate > 60; Glucose Random 100 mg/dL (60-115); Potassium 4.1 mmol/L (3.3-5.1); Sodium 142 mmol/L (135-145)
--- NOTE | 2024-01-14 00:02 | ED_ITS ---
HPI - Female Genitourinary General Chief complaint: Urogenital-Female Stated complaint: ?UTI Time Seen by Provider: 01/13/24 23:57 Source: patient Mode of arrival: ambulatory Limitations: no limitations History of Present Illness ED Provider: Dr. Jemima Arellano HPI Narrative: Patient comes to the emergency room stating that her urine smells foul. It has been about a week. Patient denies hematuria or dysuria, denies frequency. Patient states that she has no symptoms at all. Patient was concerned about the smell. Patient went to [facility], bought an [id number] UTI test, patient states it was borderline positive Related Data Home Medications ?Medication ?Instructions ?Recorded ?Confirmed No Known Home Meds 11/24/23 11/24/23 Allergies Allergy/AdvReac Type Severity Reaction Status Date / Time Seasonal Allergies Allergy Runny Nose Verified 01/13/24 23:05 Review of Systems 2 Review of Systems: Constitutional : No Weight loss, No Fever, No Chills, No Night Sweats, No Fatigue, No Malaise ENT/Mouth : No Hearing loss, No Ear Pain, No Nasal Congestion, No Sinus Pain, No Hoarseness, No sore throat, No Rhinorrhea, No Swallowing Difficulty Eyes: No Eye Pain, No Swelling, No Redness, No Foreign Body, No Discharge, No Vision Changes Cardiovascular : No Chest Pain, No SOB, No Dyspnea on Exertion, No Orthopnea, No Edema, No Palpitations Respiratory : No Cough, No Sputum, No Wheezing, No Smoke Exposure, No Dyspnea Gastrointestinal : No Nausea, No Vomiting, No Diarrhea, No Constipation, No abdominal Pain, No Hematochezia, No Melena Genitourinary : no irregular bleeding complaining of foul-smelling urine,, No Dysuria, No Urinary Frequency, No Hematuria, No Urinary Incontinence, No Urgency, No Flank Pain, No Urinary Flow Changes, No Hesitancy Musculoskeletal : No joint pain, No Myalgias, No Joint Swelling Skin : No Skin Lesions, No rash Neuro : No Weakness, No Numbness, No Paresthesias, No Loss of Consciousness, No Dizziness, No Headache Psych : No Anxiety/Panic, No Depression, No SI/HI/AH/VH, No Social Issues, Heme/Lymph: No Bruising, No Bleeding,No Lymphadenopathy Endocrine : No Polyuria, No Polydipsia, No Temperature Intolerance PMFSH Past Medical History Medical History Moderate recurrent major depression Polyarthralgia Easy bruising GERD (gastroesophageal reflux disease) Physical exam Missed menses Fibromyalgia Hypovitaminosis D Obesity (BMI 30-39.9) Hyperhidrosis of hands Breast cyst Cyst of upper eyelid Cervical cancer screening Physical exam, annual Anxiety Surgical History History of tubal ligation History of cholecystectomy Family History Family History Father Diabetes Cancer Mother No problems noted. Paternal Grandmother Lupus Cancer Brother Automobile accident Maternal Grandfather Alzheimer disease Social History Social History Household Members: Children Housing: Apartment Are you a primary care assistant to a significant other at home: No Do you presently have visiting nurse or other home services: No Alcohol intake: never Patient Tobacco Use Status: Former Tobacco user Tobacco use type: Cigarette e-Cigarette/Vaping Use: Never Used Second Hand Smoke Exposure: Yes Substance Use Type: Marijuana service: No Current occupational status: employed Current occupational exposures/hazards: No Cognitive needs: No Hearing needs: No Vision needs: Yes Physical Exam 2 Vital Signs: Vital Signs: Last Vital Signs Temp 97.8 F 01/13/24 23:03 Pulse 66 01/13/24 23:03 Resp 18 01/13/24 23:03 BP 97/36 L 01/13/24 23:03 Pulse Ox 97 01/13/24 23:03 O2 Del Method Room Air 01/13/24 23:03 BMI result Body Mass Index 29.6 Const: Other: Appearance: Alert. Oriented X3. No acute distress. Eyes: Pupils equal, round and reactive to light. ENT: Pharynx normal. Neck: Normal inspection. Neck supple. No lymph nodes noted. No crepitus CVS: Normal heart rate and rhythm. Pulses normal. Normal S1 and S2 Respiratory: No respiratory distress. Breath sounds normal. No Wheezing. No rales Abdomen: Soft and nontender. No rigidity. No distention. Skin: Skin warm and dry. Normal skin color. Normal skin turgor. Extremities: No lower extremity edema. No Lacerations. No Rash Neuro: Oriented X 3. No motor deficit. No sensory deficit. Moving all extremities. No slurred speech. CN 2 through 12 grossly intact Psych: calm, cooperative, normal affect Medical Decision Making Medical Decision Making [facility] Narrative: Patient's physical exam is completely normal, no suprapubic tenderness, no flank pain Normal vitals Urinalysis negative for UTI Discussed with the patient that this melena urine could be related to medications versus supplements versus foods that she may have eaten. Differential Diagnosis Differential Diagnoses: The differential diagnosis associated with the presentation includes (UTI, cystitis) Lab Data [facility] Lab Attestation statement: I reviewed the patient's lab results. 01/13/24 23:27 01/13/24 23:27 Labs: Lab Results 01/13/24 Range/Units 23:27 WBC 7.2 (4.8-10.8) X10*3/uL RBC 3.87 L (4.20-5.50) X10*6/uL Hgb 11.0 L (12.0-16.0) g/dl Hct 33.9 L (37.0-47.0) % MCV 87.6 (80.0-98.0) fL MCH 28.4 (27.0-33.0) pg MCHC 32.4 (31.0-35.0) g/dl RDW 13.0 (11.0-16.0) % Plt Count 228 (160-400) X10*3/uL MPV 10.7 (9.4-12.3) fL Absolute Nucleated RBC 0.000 (0.0-0.012) X10*3/uL Nucleated RBC % (auto) 0.0 (0.0-0.2) /100WBC Sodium 142 (135-145) mmol/L Potassium 4.1 (3.3-5.1) mmol/L Chloride 108 (96-108) mmol/L Carbon Dioxide 26 (22-29) mmol/L Anion Gap 12 (12-20) BUN 15 (9-16) mg/dL Creatinine 0.82 (0.5-1.4) mg/dL Estim Creat Clear Calc 88.0 Estimated GFR > 60 Random Glucose 100 (60-115) mg/dL Calcium 9.7 (8.4-10.2) mg/dL Urine Color Dark Yellow Urine Appearance Clear Urine pH 6.0 (5.0-9.0) Ur Specific [place] >= 1.030 H (1.005-1.025) Urine Protein Trace (Neg-Trace) mg/dL Urine Glucose (UA) Negative (Negative) mg/dL Urine Ketones Trace (Negative) mg/dL Urine Blood Negative (Negative) Urine Nitrite Negative (Negative) Ur Leukocyte Esterase Negative (Negative) Discharge Plan Discharge Clinical Impression: Foul smelling urine Patient Disposition: Home, Self-Care Instructions: Urinary Tract Infection in Women (ED) Additional Instructions: Please follow-up with your primary care physician tomorrow. If you have any worsening or new symptoms, please return to the emergency room or call 911 Prescriptions: No Action No Known Home Meds Print Language: Indonesian
[2024-01-14 00:16] LABS: UPreg QC Valid YES; Urine Pregnancy NEGATIVE (NEGATIVE)
[2024-01-14 00:24] VITALS: BP 96/47; PULSE 60; RESP 16; TEMP 36.6; O2SAT 97
[2024-01-14 00:25] VITALS: BP 96/47; PULSE 60; RESP 16; TEMP 36.6; O2SAT 97
== END 2024-01-14 00:26 | disposition home or self-care (01) ==
PROVIDERS: Emergency Provider Emergency Medicine; PCP Internal Medicine
DX: R82.998 Other abnormal findings in urine (principal)
CPT/HCPCS: 36415; 80048; 81003; 81025; 85027; 99283

== ENCOUNTER 2024-02-03 10:17 | Outpatient (AMB) | payer OTHER, SELFPAY ==
[2024-02-03 10:22] VITALS: BP 100/62; BMI 28.7
--- NOTE | 2024-02-03 10:22 | MHC.PC.OV ---
Vital Signs 02/03/24 10:22 Height 5 ft 1 in Weight 152 lb BMI 28.7 BP 100/62 Blood Pressure Location Lt brachial Position Sitting Intake Visit [place] [facility] [place]TI? Intake Note: Patient here for [facility] [place] up ? 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 Urinalysis was negative. She said foul-smelling urine resolved after she noticed that she left a tampon for 3 weeks inside. No fever or vaginal discharge. Hemoglobin still low and I will start her on ferrous sulfate once a day with vitamin-C. No chest pain or shortness on breath. [facility] Medical History (Updated 02/03/24 @ 12:04 by Yolanda Rodriguez MD) Moderate recurrent major depression Polyarthralgia Easy bruising GERD (gastroesophageal reflux disease) Physical exam Missed menses Fibromyalgia Hypovitaminosis D Obesity (BMI 30-39.9) Hyperhidrosis of hands Breast cyst Cyst of upper eyelid Cervical cancer screening Physical exam, annual Anxiety Surgical History History of tubal ligation History of cholecystectomy Family History Father Diabetes Cancer Mother No problems noted. Paternal Grandmother Lupus Cancer Brother Automobile accident Maternal Grandfather Alzheimer disease Social History Household Members: Children Housing: Apartment Are you a primary healthcare receptionist to a significant other at home: No Do you presently have visiting nurse or other home services: No Alcohol intake: never Patient Tobacco Use Status: Former Tobacco user Tobacco use type: Cigarette e-Cigarette/Vaping Use: Never Used Second Hand Smoke Exposure: Yes Substance Use Type: Marijuana service: No Current occupational status: employed Current occupational exposures/hazards: No Cognitive needs: No Hearing needs: No Vision needs: Yes Questionnaire Thrive Questionnaire Date Thrive assessed: 11/24/23 TRACE-7 AMB Questionnaire TRACE-7 Date TRACE - 7 assessed: 11/24/23 Source: Developed by Drs. Awais Sweet, Hannah Saucedo, Oral Momin and colleagues, with an educational rakesh from [employer]. Review of Systems Const All systems reviewed & are unremarkable except as noted in HPI and below Card Denies chest pain at rest, Denies chest pain with activity, Denies edema, Denies irregular heart rhythm, Denies claudication, Denies dyspnea, Denies dyspnea on exertion, Denies orthopnea, Denies paroxysmal nocturnal dyspnea and Denies slow heart rate Resp Denies cough, Denies dyspnea and Denies dyspnea on exertion Physical exam (Primary Care) Vital Signs: Last Vital Signs BP 100/62 02/03/24 10:22 BMI result Body Mass Index 28.7 Tobacco/Smoking Status: Tobacco use Status Tobacco use date assessed 11/24/23 02/03/24 10:26 Patient Tobacco Use Status Former Tobacco user 02/03/24 10:26 Tobacco use type Cigarette 02/03/24 10:26 e-Cigarette/Vaping Use Never Used 02/03/24 10:26 Thrive Assessment: Date of Thrive Assessment Date Thrive assessed 11/24/23 02/03/24 10:26 Resp Effort & Inspection: normal respiratory effort Auscultation: clear to auscultation bilaterally Cardio Jugular venous distension: no JVD Rate: regular rate Rhythm: regular rhythm Heart sounds: S1 normal heart sound present and S2 normal heart sound present Extrem General: Yes full ROM Office Procedures Flu Questionnaire Does the patient have a severe egg allergy?: No Results AMB Urinalysis, Automated UA Leukoctes 0 Raymond/uL Last Edit by LINDA Ramires on 02/03/24 10:37 UA Nitrite Negative Last Edit by LINDA Ramires on 02/03/24 10:37 UA Urobilinogen 0 mg/dL Last Edit by LINDA Ramires on 02/03/24 10:37 UA Protein 1 mg/dL Last Edit by LINDA Ramires on 02/03/24 10:37 UA pH 6.0 Last Edit by Ben Kyle, RMA on 02/03/24 10:37 UA Blood 0 Eliceo/uL Last Edit by Ben Kyle, CRISTINAA on 02/03/24 10:37 UA Specific [place] 1.030 Last Edit by Ben Kyle, LINDA on 02/03/24 10:37 UA Ketone Negative Last Edit by Ben Kyle, LINDA on 02/03/24 10:37 UA Bilirubin 0 mg/dL Last Edit by Ben Kyle, RMA on 02/03/24 10:37 UA Glucose 0 mg/dL Last Edit by LINDA Ramires on 02/03/24 10:37 Immunizations Fluarix Triv [id number] (PF) 45 mcg (15 mcg x 3)/0.5 mL IM syringe Performing Provider: Yolanda Rodriguez MD [facility] Documented (not given) by: LINDA Ramires on 02/03/24 10:33 Reason Not Given: Patient Refused Results Reviewed Results Reviewed: Laboratory Last Values Urine pH (Auto) 6.0 02/03/24 10:34 Specific [place] (Auto) 1.030 02/03/24 10:34 Urine Protein (Auto) 1 mg/dL 02/03/24 10:34 Glucose (UA)(Auto) 0 mg/dL 02/03/24 10:34 Urine Ketones (Auto) Negative 02/03/24 10:34 Urine Blood (Auto) 0 Eliceo/uL 02/03/24 10:34 Urine Nitrite (Auto) Negative 02/03/24 10:34 Urine Bilirubin (Auto) 0 mg/dL 02/03/24 10:34 Urine Urobilinogen (Auto) 0 mg/dL 02/03/24 10:34 Leukocyte Esterase (Auto) 0 Raymond/uL 02/03/24 10:34 Coding Level of Care Code Est Pt Level 3 (94067) Complex EM visit Add On G2211 Diagnoses Iron deficiency anemia due to chronic blood loss D50.0 Hospital discharge follow-up Z09 Foul smelling urine R82.90 Time Spent (min) 18 Assessment & Plan Assessment & Plan (1) Iron deficiency anemia due to chronic blood loss: Code(s): D50.0 - Iron deficiency anemia secondary to blood loss (chronic) Category: Medical Plan: Start ferrous sulfate and vitamin-C. (2) Hospital discharge follow-up: Code(s): Z09 - Encounter for follow-up examination after completed treatment for conditions other than malignant neoplasm Category: Medical Plan: Went due to foul-smelling urine. Urinalysis was negative. (3) Foul smelling urine: Code(s): R82.90 - Unspecified abnormal findings in urine Category: Medical Plan: Resolve after taking tampon out after being inside for 3 weeks. Orders: Orders Influenza [id number] Immunization Today Z23 - Encounter for immunization AMB Urinalysis Automated Today N39.0 - Urinary tract infection, site not specified Medications: New ferrous sulfate 325 mg PO DAILY 90 days 90 tabs 0RF ascorbate calcium (vitamin C) 500 mg PO DAILY 90 days 90 tabs 0RF gabapentin 100 mg PO BEDTIME 90 days 90 caps 0RF
== END 2024-02-03 10:59 | disposition home or self-care (01) ==
PROVIDERS: PCP Internal Medicine; Visit Provider Internal Medicine
DX: D50.0 Iron deficiency anemia secondary to blood loss (chronic) (principal); Z09 Encounter for follow-up examination after completed treatment for conditions other than malignant neoplasm; R82.90 Unspecified abnormal findings in urine; Z23 Encounter for immunization; N39.0 Urinary tract infection, site not specified

== ENCOUNTER → 2024-02-03 10:17 | Outpatient (BNVA) | payer OTHER, SELFPAY | PROVIDERS: PCP Internal Medicine; Visit Provider Internal Medicine | DX: D50.0 Iron deficiency anemia secondary to blood loss (chronic) (principal); R82.90 Unspecified abnormal findings in urine; Z28.21 Immunization not carried out because of patient refusal | CPT/HCPCS: 81003; 90471; 99212 ==

== ENCOUNTER 2024-06-21 22:29 | Emergency (ER) | payer OTHER, SELFPAY ==
[2024-06-21 22:33] VITALS: BP 115/63; PULSE 73; RESP 16; TEMP 36.4; O2SAT 99; BMI 26.4
[2024-06-21 22:58] LABS: MANUAL DIFF FLAG NO
[2024-06-21 22:59] LABS: Basophils Percent Auto 0.2 % (0-2); Eosinophils Absolute Auto 0.1 X10*3/uL (0.0-0.4); Eosinophils Percent Auto 0.9 % (0-4); Hematocrit 32.2 % (37.0-47.0); Hemoglobin 10.7 g/dl (12.0-16.0); Imm Gran Abs Auto 0.01 X10*3/uL (0.00-0.03); Imm Gran Pct Auto 0.2 % (0.0-0.4); Lymphocytes Absolute Auto 1.2 X10*3/uL (1.2-4.9); Lymphocytes Percent Auto 21.2 % (20-40); Mean Corpuscular HGB Conc 33.2 g/dl (31.0-35.0); Mean Corpuscular Hemoglobin 28.5 pg (27.0-33.0); Mean Corpuscular Volume 85.6 fL (80.0-98.0); Monocytes Absolute Auto 0.3 X10*3/uL (0.1-1.2); Monocytes Percent Auto 5.9 % (2-11); Neutrophils Absolute Auto 3.9 x10*3/uL (2.0-8.3); Neutrophils Percent Auto 71.6 % (45-73); Platelet Count 183 X10*3/uL (160-400); Red Blood Count 3.76 X10*6/uL (4.20-5.50); Red Cell Distribution Width 12.4 % (11.0-16.0); White Blood Count 5.4 X10*3/uL (4.8-10.8)
[2024-06-21 23:15] LABS: Alanine Aminotransferase 34 U/L (0-31); Albumin Level 4.2 g/dL (3.5-5.0); Alkaline Phosphatase 73 U/L (39-117); Anion Gap 10 (12-20); Aspartate Amino Transferase 24 U/L (5-31); Bilirubin Direct 0.2 mg/dL (0.0-0.5); Bilirubin Total 0.5 mg/dL (0.0-1.0); Blood Urea Nitrogen 12 mg/dL (9-16); Carbon Dioxide 25 mmol/L (22-29); Chloride 109 mmol/L (96-108); Creatinine Clr Calc Pharmacy 103.4; Estimated Glomerular Filt Rate > 60; Glucose Random 110 mg/dL (60-115); Potassium 3.4 mmol/L (3.3-5.1); Sodium 141 mmol/L (135-145); Total Protein 7.6 g/dL (6.5-8.0)
[2024-06-22 02:02] LABS: Lipase 9 U/L (8-78)
== END 2024-06-22 01:47 | disposition left against medical advice (07) ==
PROVIDERS: Emergency Provider Emergency Medicine
DX: M79.10 Myalgia, unspecified site (principal); R51.9 Headache, unspecified
CPT/HCPCS: 36415; 80053; 82248; 83690; 85025; 99281

== ENCOUNTER 2024-07-05 15:14 | Outpatient (AMB) | payer OTHER, SELFPAY ==
--- NOTE | 2024-07-05 15:27 | MHC.PC.OV ---
Vital Signs 07/05/24 15:31 Height 5 ft 1 in Weight 138 lb 4 oz BMI 26.1 BP 110/62 Blood Pressure Location Lt brachial Position Sitting Pulse 116 H Pulse Source Pulse Oximeter Temp 97.1 F Temp Source Temporal Artery Scan Pulse Oximetry (%) 99 Oxygen Delivery Method Room Air Intake Visit Reasons: PE Intake Note: Patient is here today for a physical. Hospital Director Required: No Bridge Tender: Not Required per policy Accompanied by: Self / Same As Patient Allergies Seasonal Allergies Allergy (Verified 07/05/24 15:40) Runny Nose Medication List - Last Reconciled 07/05/24 by Rosalinda Cheney PA-C ascorbate calcium (vitamin C) 500 mg PO DAILY 90 days ferrous sulfate 325 mg PO DAILY 90 days gabapentin 100 mg PO BEDTIME 90 days Tobacco use date assessed: 07/05/24 Dental Screening Dental Screen Date: 07/05/24 Did you have a dental visit in the last 12 months?: Yes Did you have a dental problem in the last 6 months where you did not have access to dental care?: No Was dental information given to patient?: Patient has dentist HPI PE HPI Details 34-year-old female with past medical history of anxiety, obesity, fibromyalgia, vitamin-D deficiency, GERD last seen by Dr. Herrera 01/2024 coming in for annual exam. The patient is a 34-year-old female presenting with a sore throat and illness symptoms. Symptoms include the onset of sore throat on Friday night/Friday, difficulty swallowing, and temporary aphonia. Several days of fluctuating feverish sensations with hot sweats, now improved. No cough, but a sensation of coldness and persistent nausea. Background of fibromyalgia, current presentation includes weakness and body soreness believed to be related to weather. [facility] Medical History Moderate recurrent major depression Polyarthralgia Easy bruising GERD (gastroesophageal reflux disease) Physical exam Missed menses Fibromyalgia Hypovitaminosis D Obesity (BMI 30-39.9) Hyperhidrosis of hands Breast cyst Cyst of upper eyelid Cervical cancer screening Physical exam, annual Anxiety Surgical History History of tubal ligation History of cholecystectomy Family History Father Diabetes Cancer Mother No problems noted. Paternal Grandmother Lupus Cancer Brother Automobile accident Maternal Grandfather Alzheimer disease Social History Household Members: Children Housing: Apartment Are you a primary care attendant to a significant other at home: No Do you presently have visiting nurse or other home services: No Alcohol intake: never Patient Tobacco Use Status: Former Tobacco user Tobacco use type: Cigarette e-Cigarette/Vaping Use: Never Used Second Hand Smoke Exposure: Yes Substance Use Type: Marijuana service: No Current occupational status: employed Current occupational exposures/hazards: No Cognitive needs: No Hearing needs: No Vision needs: Yes Questionnaire PHQ-9 Over the last 2 weeks, how often have you been bothered by any of the following problems? 1. Little interest or pleasure in doing things: not at all 2. Feeling down, depressed, or hopeless: not at all 3. Trouble falling or staying asleep, or sleeping too much: not at all 4. Feeling tired or having little energy: not at all 5. Poor appetite or overeating: not at all 6. Feeling bad about yourself - or that you are a failure or have let yourself or your family down: not at all 7. Trouble concentrating on things, such as reading the newspaper or watching television: not at all 8. Moving or speaking so slowly that other people could have noticed. Or the opposite - being so fidgety or restless that you have been moving around a lot more than usual: not at all 9. Thoughts that you would be better off or of hurting yourself in some way: not at all Total score: 0 Source: Developed by Drs. Awais Sweet, Hannah Saucedo, Oral Momin and colleagues, with an educational rakesh from [employer]. Thrive Questionnaire Date Thrive assessed: 07/05/24 I am a: Patient What is your living situation today?: I have a steady place to live Within the past 12 months, did the food you bought not last and you didn't have the money to get more?: Never true Within the past 12 months, did you worry whether your food would run out before you got money to buy more?: Never true Do you have trouble paying for medicines?: No Do you have trouble getting transportation to medical appointments?: No Do you have trouble paying your heating and electricity bill?: No Do you have trouble taking care of your child, family member or friend?: No Do you have trouble with day-to-day activities such as bathing, preparing meals, shopping, managing finances, etc.?: No Are you currently unemployed and looking for a job?: No Are you interested in more education?: No Please select the resources that you would like help with: None THRIVE Score: 0 AUDIT C Alcohol Use Questionnaire (AUDIT-C) 1. How often do you have a drink containing alcohol?: Monthly or less 2. How many drinks containing alcohol do you have on a typical day when you are drinking?: 1 or 2 Total Score: 1 TRACE-7 AMB Questionnaire TRACE-7 Date TRACE - 7 assessed: 07/05/24 Feeling nervous, anxious, or on edge: 0 = Not at all Not being able to stop or control worryin = Not at all Worrying too much about different things: 0 = Not at all Trouble relaxin = Not at all Being so restless that it is hard to sit still: 0 = Not at all Becoming easily annoyed or irritable: 0 = Not at all Feeling afraid as if something awful might happen: 0 = Not at all Total TRACE-7 score (0-4 normal; 5-9 mild; 10-14 moderate; 15-21 severe): 0 Source: Developed by Drs. Awais Sweet, Hannah Saucedo, Oral Momin and colleagues, with an educational rakesh from [employer]. Review of Systems Const Reports body aches, Reports chills, Denies fever(s), Reports headache(s) and Reports poor appetite Eyes Reports no additional complaints ENT Reports dysphagia, Denies dizziness, Reports headache(s) and Reports odynophagia Card Denies chest pain, Denies lightheadedness and Denies dyspnea Resp Denies cough and Denies dyspnea GI Denies abdominal pain, Reports dysphagia, Reports nausea, Reports odynophagia and Denies vomiting Reports no additional complaints Musc Reports no additional complaints and Denies abnormal gait Skin/Breast Reports system reviewed and no additional complaints, except as documented Neuro Denies abnormal gait, Denies dizziness and Reports headache(s) Psych Reports no additional complaints Physical exam (Primary Care) Vital Signs: Last Vital Signs Temp 97.1 F 07/05/24 15:31 Pulse 116 H 07/05/24 15:31 BP 110/62 07/05/24 15:31 Pulse Ox 99 07/05/24 15:31 Oxygen Delivery Method Room Air 07/05/24 15:31 BMI result Body Mass Index 26.1 Tobacco/Smoking Status: Tobacco use Status Tobacco use date assessed 07/05/24 07/05/24 15:32 Patient Tobacco Use Status Former Tobacco user 07/05/24 15:32 Tobacco use type Cigarette 07/05/24 15:32 e-Cigarette/Vaping Use Never Used 07/05/24 15:32 PHQ-9: PHQ-9 Score PHQ-9: Total score 0 07/05/24 15:32 Thrive Assessment: Date of Thrive Assessment Date Thrive assessed 07/05/24 07/05/24 15:32 Const General: cooperative, healthy appearing, comfortable and no acute distress Orientation/consciousness: patient oriented x3 HENMT Other: Posterior cervical and submandibular lymphadenopathy Head: Yes normocephalic Ears: hearing grossly normal bilaterally General nose exam: Normal external nose present Throat: Yes uvula midline, Yes abnormal tonsil (Diffuse tonsillar exudates bilaterally R > L ) and Yes posterior oropharynx abnormal (Erythematous without petechiae) Eyes General: appearance normal, both eyes and all related structures Conjunctivae: conjunctivae normal Neck Neck: Yes full ROM and Yes no lymphadenopathy Resp Effort & Inspection: normal respiratory effort Auscultation: clear to auscultation bilaterally, no crackles, no rales, no rhonchi and no wheezes Cardio Rate: regular rate Rhythm: regular rhythm Skin General skin exam: no rashes or lesions noted Neuro General: patient oriented x3 Gait exam (Neuro): Normal gait present Extrem General: Yes normal to inspection, Yes full ROM and No edema Psych Affect: normal affect Attitude: cooperative Insight: Good insight present (Psych) Judgement: Good judgement present (Psych) Results AMB Rapid Strep AMB Rapid Strep Negative Last Edit by Rosalinda Cheney PA-C on 07/05/24 16:41 Negative Coding Level of Care Code Est Pt Level 3 (67450) Diagnoses Pharyngitis J02.9 Assessment & Plan Assessment & Plan (1) Pharyngitis: Code(s): J02.9 - Acute pharyngitis, unspecified Category: Medical Plan: During the visit, I noted symptoms strongly suggesting streptococcal pharyngitis, even with a negative rapid test. I initiated an antibiotic regimen with Amoxicillin, based on the throat exam. The patient was advised regarding antibiotics administration on a full stomach, and the importance of replacing her toothbrush 48 hours post-antibiotic initiation was discussed. I will reassess her progress and decide on further action if no improvement occurs within 2-3 days. Patient declined throat culture at today's visit. I discussed if symptoms do not begin to improve in 2-3 days to reach out to the office as she will need reassessment with throat culture at that time. Plan This note was constructed using voice recognition software. While every effort has been made to ensure accuracy and senior consulting manager, still areas may have been included sometimes these areas may affect the content or meeting of the given symptoms. Total time spent caring for the patient today was 20 minutes. This includes time spent before the visit reviewing the chart, time spent during the visit, and time spent after the visit and documentation. Patient was informed and verbally consented to the use of an ambient scribe for clinic note documentation during this visit. Orders: Orders AMB Rapid Strep Screen Today Z13.9 - Encounter for screening, unspecified Medications: New ondansetron 4 mg PO Q8H 14 tabs 0RF amoxicillin 500 mg PO BID 10 days 20 caps 0RF
[2024-07-05 15:31] VITALS: BP 110/62; PULSE 116; TEMP 36.2; O2SAT 99; BMI 26.1
== END 2024-07-05 16:06 | disposition home or self-care (01) ==
DX: Z13.9 Encounter for screening, unspecified (principal); J02.9 Acute pharyngitis, unspecified

== ENCOUNTER → 2024-07-05 15:14 | Outpatient (BNVA) | payer OTHER, SELFPAY | DX: J02.9 Acute pharyngitis, unspecified (principal) | CPT/HCPCS: 87880; 99212 ==

== ENCOUNTER 2024-07-21 09:25 | Outpatient (REF) | payer OTHER, SELFPAY ==
[2024-07-21 11:55] LABS: Cholesterol 163 mg/dL (<200); HDL Cholesterol 50 mg/dL (>40); LDL Cholesterol Calculated 97 mg/dL (<100); Triglycerides 83 mg/dL (<150)
[2024-07-21 12:12] LABS: Free T4 (Free Thyroxine) 0.98 ng/dL (0.71-1.85); TSH reflex Free T4 0.96 uIU/mL (0.32-4.0); Vitamin D 25-OH Total 9.7 ng/mL (>30)
[2024-07-21 12:20] LABS: Folate 7.6 ng/mL (> or = 4.0); Vitamin B12 472 pg/mL (200-900)
== END 2024-07-21 09:26 | disposition home or self-care (01) ==
LOC: HO.LAB 09:25
DX: Z00.00 Encounter for general adult medical examination without abnormal findings (principal); D50.0 Iron deficiency anemia secondary to blood loss (chronic); M79.7 Fibromyalgia; K21.9 Gastro-esophageal reflux disease without esophagitis; E55.9 Vitamin D deficiency, unspecified; E66.9 Obesity, unspecified; Z68.27 Body mass index [BMI] 27.0-27.9, adult; F41.9 Anxiety disorder, unspecified; F32.A Depression, unspecified; L74.512 Primary focal hyperhidrosis, palms; Z13.220 Encounter for screening for lipoid disorders
CPT/HCPCS: 36415; 80061; 82306; 82607; 82746; 84439; 84443; 99395

== ENCOUNTER 2024-07-21 09:25 | Outpatient (AMB) | payer OTHER, SELFPAY ==
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
[2024-07-21 09:28] VITALS: BP 124/70; PULSE 57; TEMP 36.3; O2SAT 98; BMI 27.7
== END 2024-07-21 10:31 | disposition home or self-care (01) ==
LOC: HO.HMCH 09:26
DX: Z00.00 Encounter for general adult medical examination without abnormal findings (principal); D50.0 Iron deficiency anemia secondary to blood loss (chronic); E66.9 Obesity, unspecified; Z68.27 Body mass index [BMI] 27.0-27.9, adult; M79.7 Fibromyalgia; K21.9 Gastro-esophageal reflux disease without esophagitis; E55.9 Vitamin D deficiency, unspecified; F41.9 Anxiety disorder, unspecified; F32.A Depression, unspecified; L74.512 Primary focal hyperhidrosis, palms

== ENCOUNTER 2024-10-20 10:52 | Outpatient (AMB) | payer OTHER, SELFPAY ==
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
[2024-10-20 10:55] VITALS: BP 116/64; PULSE 65; O2SAT 98; BMI 29.5
--- OUTSIDE RECORDS SUMMARY | 2024-10-20 11:59 | XMS_ITS | Clinical Summary ---
Author Organization [facility] Address [address] [place] [address] Phone Care Team Providers Care Search Engine Marketing Specialist Name Role Phone Frankie Jett MD Primary Care Provider [phone] Allergies No known active allergies Medications methocarbamoL (ROBAXIN) 750 mg tablet Take 1 tablet (750 mg total) by mouth 4 (four) times a day for 10 days. 20 each 09/22/2024 Active naproxen (NAPROSYN) 500 mg tablet Take 1 tablet (500 mg total) by mouth 2 (two) times a day with meals for 15 days. 30 tablet 09/22/2024 Encounters Date Type Department Care Team Description 09/22/2024 1:47 AM EDT - 09/22/2024 2:35 AM EDT Emergency [facility] Emergency [address] [place] [address] Strain of right rhomboid muscle (Primary Dx) Discharge Disposition: Home or Self Care from Last 3 Months Social History Tobacco Use Types Packs/Day Years Used Date Smoking Tobacco: Never Assessed Comments No Sex and Gender Information Value Date Recorded Sex Assigned at Not on file Legal Sex Female 12:54 PM EST Gender Identity Not on file Sexual Orientation Not on file Last Filed Vital Signs Vital Sign Reading Time Taken Comments Blood Pressure 120/82 09/21/2024 11:34 PM EDT Pulse 78 09/21/2024 11:34 PM EDT Temperature 36.6 C (97.9 F) 09/21/2024 11:34 PM EDT Respiratory Rate 16 09/21/2024 11:34 PM EDT Oxygen Saturation 98% 09/21/2024 11:34 PM EDT Inhaled Oxygen Concentration - - Weight 67.1 kg (148 lb) 09/21/2024 11:34 PM EDT Height 154.9 cm (5' 1 ) 09/21/2024 11:34 PM EDT Body Mass Index 27.96 09/21/2024 11:34 PM EDT Plan of Treatment Health Maintenance Due Date Last Done Comments Hepatitis B Vaccines (1 of 3 - 19+ 3-dose series) 2010 Cervical Cancer Screening: Pap Smear 01/10/2012 COVID-19 Vaccine ( season) 2023 06/12/2021, 01/08/2021, 12/06/2020 Depression Screening 09/22/2024 HIV Screening 09/22/2024 Hepatitis C Screening 09/22/2024 Social Influencers of Health Screening 09/22/2024 Influenza Vaccine (#1) 2024 , 02/05/2019, 01/12/2013, Additional history exists DTaP,Tdap,and Td Vaccines (3 - Td or Tdap) 08/21/2027 08/20/2017, 04/27/2012 MMR Vaccines Aged Out 08/25/2017 No longer eligi ble based on patient's age to complete this topic HIB Vaccines Aged Out No longer eligi ble based on patient's age to complete this topic HPV Vaccines Aged Out No longer eligi ble based on patient's age to complete this topic Hepatitis A Vaccines Aged Out No long er eligible based on patient's age to complete this topic IPV Vaccines Aged Out No longer eligi ble based on patient's age to complete this topic Meningococcal ACWY Vaccine Aged Out N o longer eligible based on patient's age to complete this topic Meningococcal B Vaccine Aged Out No l onger eligible based on patient's age to complete this topic Pneumococcal Vaccine: Pediatrics (0 to 5 Years) and At-Risk Patients (6 to 49 Years) Aged Out No longer eligible based on patient's age to complete this topic RSV Immunization Patients Under 20 months Aged Out No longer eligible based on patient's age to complete this topic Varicella Vaccines Aged Out No longer eligible based on patient's age to complete this topic Procedures Procedure Name Priority Date/Time Associated Diagnosis Comments XR SHOULDER 2+ VIEWS RIGHT STAT 09/22/2024 1:50 AM EDT POC , URINE DIAGNOSTIC STAT 09/22/2024 12:16 AM EDT from Last 3 Months Results * XR Shoulder 2+ Views Right (09/22/2024 1:50 AM EDT) Anatomical Region Laterality Modality Upper Extremities, Shoulder Right Radi ographic Imaging 09/22/2024 8:29 AM EDT Impressions 09/22/2024 8:30 AM EDT Impression: No significant abnormality identified in the right shoulder. Telerad PA ([id number]) -------- FINAL REPORT -------- Dictated By: Hattie Song Dictated Date: 09/22/2024 08:29 ET Assigned Physician: Hattie Song Reviewed and Electronically Signed By: Hattie Song Signed Date: 09/22/2024 08:30 ET Workstation ID: [id number] Transcribed By: Self Edit Transcribed Date: 09/22/2024 08:29 ET Narrative 09/22/2024 8:30 AM EDT History: Right shoulder pain. Comparison: No comparison imaging at this institution. Findings: 3 views of the right shoulder. Bone mineralization is normal. The glenohumeral and acromioclavicular joints are well-maintained. A 5 mm round, sclerotic lesion within the humeral head most likely represents a benign bone island. The overlying soft tissues are unremarkable. Procedure Note Hattie Song MD - 09/22/2024 History: Right shoulder pain. Comparison: No comparison imaging at this institution. Findings: 3 views of the right shoulder. Bone mineralization is normal. Theglenohumeral and acromioclavicular joints are well-maintained. A 5 mmround, sclerotic lesion within the humeral head most likely represents abenign bone island. The overlying soft tissues are unremarkable. IMPRESSION: Impression: No significant abnormality identified in the right shoulder. Telerad PA ([id number]) -------- FINAL REPORT -------- Dictated By: Hattie Song Dictated Date: 09/22/2024 08:29 ET Assigned Physician: Hattie Song Reviewed and Electronically Signed By: Hattie Song Signed Date: 09/22/2024 08:30 ET Workstation ID: [id number] Transcribed By: Self Edit Transcribed Date: 09/22/2024 08:29 ET Shanta Ruiz MD IMG XR PROCEDURES Final Result * POC , urine manually resulted (09/22/2024 12:16 AM EDT) HCG, Ur POC Negative Negative POC hCG Int QC Pass? Yes Yes Urine Urine specimen obtained by clean catch procedure / Unknown 09/22/2024 12:16 AM EDT Shanta Ruiz MD POINT OF CARE TEST ENTER /EDIT ORDERABLES Final Result from Last 3 Months Insurance [employer] Care Teams Search Engine Marketing Specialist Relationship Specialty Start Date End Date Frankie Jett MD [address] [place] [address] [address] [facility] [place] [address] PCP - General Internal Medicine 04/12/20
== END 2024-10-20 11:35 | disposition home or self-care (01) ==
LOC: HO.HMCH 10:53
DX: K21.9 Gastro-esophageal reflux disease without esophagitis (principal); E66.9 Obesity, unspecified; Z68.29 Body mass index [BMI] 29.0-29.9, adult; F41.9 Anxiety disorder, unspecified; F32.A Depression, unspecified; L74.512 Primary focal hyperhidrosis, palms; G47.10 Hypersomnia, unspecified

== ENCOUNTER → 2024-10-20 10:52 | Outpatient (BNVA) | payer OTHER, SELFPAY | DX: K21.9 Gastro-esophageal reflux disease without esophagitis (principal); E66.9 Obesity, unspecified; Z68.29 Body mass index [BMI] 29.0-29.9, adult; F41.9 Anxiety disorder, unspecified; F32.A Depression, unspecified; L74.512 Primary focal hyperhidrosis, palms; G47.10 Hypersomnia, unspecified; Z13.30 Encounter for screening examination for mental health and behavioral disorders, unspecified | CPT/HCPCS: 96127; 99212 ==